=== PATIENT | male | born 1960 | race Caucasian/White ===

== ENCOUNTER 2021-05-21 10:52 | Inpatient (IN) ==
[2021-05-21] MEDS ORDERED: dexAMETHasone**PF** 10 MG/ML VIAL IV ONE (11:52)
--- NOTE | 2021-05-21 12:46 | Emergency Department Note ---
History of Present Illness General Chief complaint: Shortness of Breath/Dyspnea Stated complaint: SOB,LOW OXYGEN,LEG SHAKES,LOWER BODY Time Seen by Provider: 05/21/21 11:49 History of Present Illness 61-year-old male who presents to the emergency department with complaint of a low oxygen level, weakness and shortness of breath. The patient reports that he tested positive for COVID-19 on 05/10/2021. Patient reports having symptoms the day before he was tested, which included headaches and body aches. The patient reports that his symptoms have been progressively worsening for the past 4 to 5 days. A sister has a pulse ox, and the patient reports that over the past 24 hours, his oxygen levels have been in the mid 80s. The patient reports that he was seen at the [place] emergency department this past Friday with dizziness. He reports that his chest x-ray was clear. No ECG or lab work was performed. The patient was started on prednisone, and reports that he cannot tolerate the symptoms with irritability, agitation and inability to sleep. He stopped the steroids yesterday. Patient does have a significant history of cardiac stent. He follows with a international relations teacher in [place]. The patient currently rates his discomfort a 2 out of 10. Home Medications Medication Instructions Recorded Confirmed Type RAMIPRIL 5 mg PO HS #0 cap 12/05/15 05/21/21 History ascorbic acid (vitamin C) 1,000 mg 1,000 mg PO Q12H 05/21/21 05/21/21 History tablet,extended release (Vitamin C ER) aspirin 81 mg chewable tablet 81 mg PO DAILY 05/21/21 05/21/21 History atorvastatin 20 mg tablet 20 mg PO QAM 05/21/21 05/21/21 History benzonatate 100 mg capsule 100 mg PO Q6H 05/21/21 05/21/21 History carvedilol 3.125 mg tablet 3.125 mg PO BID 05/21/21 05/21/21 History Allergies Allergy/AdvReac Type Severity Reaction Status Date / Time No Known Allergies Allergy Unverified 05/21/21 12:28 Past Med/Surg History Medical History Coronary artery disease s/p stent placement ~2010 at [facility]; follows with Dr Aguayo in [place]; no [place] history. Hyperlipidemia Hypertension Surgical History Hx of heart artery stent Family History Father , in his 70s; had CABG, [place], etc. Coronary heart disease Social History Smoking Status: Never smoker Hx Alcohol Use: Yes Alcohol type: beer Alcohol Intake Frequency: Monthly or Less Preferred Language: Persian marital status: Current Living Situation: Family Current Living Situation Comment: lives with son and current occupational status: employed current occupation: works as fitter machinist at [employer] How many Children do You have: 2 Feels Safe at Home: Yes Review of Systems 10 system review was performed and was negative except for pertinent positives and negatives as indicated in history of present illness Physical Exam Vital Signs Vital Signs - 24 hr 05/21/21 11:22 05/21/21 11:52 05/21/21 11:53 Pulse Rate 76 Pulse Rate [Apical] 70 Pulse Rate [Exercises] Pulse Rhythm [Apical] Regular Respiratory Rate 20 18 Respiratory Rate [Exercises] Respiratory Effort / Characteristics Non-Labored Spontaneous Non-Labored Respiratory Depth Normal Normal Respiratory Pattern Regular Regular Blood Pressure 111/74 Blood Pressure [Right Arm] 124/78 Blood Pressure Mean 86 Blood Pressure Mean [Right Arm] 93 Blood Pressure Position Sitting Blood Pressure Position [Right Arm] Sitting Pulse Oximetry 89 L 96 96 Pulse Oximetry [Exercises] Oxygen Delivery Method Room Air Room Air Room Air Sepsis Recent Fever Within 48 Hours No Sepsis New/Unexplained Change in Mental Status No Sepsis Action Taken by Nursing No Action Required 05/21/21 11:55 05/21/21 11:57 05/21/21 12:00 Pulse Rate 60 Pulse Rate [Apical] Pulse Rate [Exercises] 74 Pulse Rhythm [Apical] Respiratory Rate 20 Respiratory Rate [Exercises] 22 Respiratory Effort / Characteristics Respiratory Depth Respiratory Pattern Blood Pressure Blood Pressure [Right Arm] Blood Pressure Mean Blood Pressure Mean [Right Arm] Blood Pressure Position Blood Pressure Position [Right Arm] Pulse Oximetry 96 95 Pulse Oximetry [Exercises] 94 Oxygen Delivery Method Room Air Room Air Sepsis Recent Fever Within 48 Hours Sepsis New/Unexplained Change in Mental Status Sepsis Action Taken by Nursing 05/21/21 12:30 05/21/21 12:45 05/21/21 13:00 Pulse Rate 68 63 Pulse Rate [Apical] Pulse Rate [Exercises] Pulse Rhythm [Apical] Respiratory Rate 20 20 Respiratory Rate [Exercises] 24 Respiratory Effort / Characteristics Respiratory Depth Respiratory Pattern Blood Pressure 132/82 Blood Pressure [Right Arm] Blood Pressure Mean 98 Blood Pressure Mean [Right Arm] Blood Pressure Position Blood Pressure Position [Right Arm] Pulse Oximetry 94 95 Pulse Oximetry [Exercises] 88 L Oxygen Delivery Method Room Air Sepsis Recent Fever Within 48 Hours Sepsis New/Unexplained Change in Mental Status Sepsis Action Taken by Nursing 05/21/21 13:30 05/21/21 14:00 05/21/21 14:30 Pulse Rate 56 L 64 60 Pulse Rate [Apical] Pulse Rate [Exercises] Pulse Rhythm [Apical] Respiratory Rate 20 20 20 Respiratory Rate [Exercises] Respiratory Effort / Characteristics Respiratory Depth Respiratory Pattern Blood Pressure 126/78 Blood Pressure [Right Arm] Blood Pressure Mean 94 Blood Pressure Mean [Right Arm] Blood Pressure Position Blood Pressure Position [Right Arm] Pulse Oximetry 95 93 94 Pulse Oximetry [Exercises] Oxygen Delivery Method Room Air Sepsis Recent Fever Within 48 Hours Sepsis New/Unexplained Change in Mental Status Sepsis Action Taken by Nursing 05/21/21 15:00 Pulse Rate 68 Pulse Rate [Apical] Pulse Rate [Exercises] Pulse Rhythm [Apical] Respiratory Rate 20 Respiratory Rate [Exercises] Respiratory Effort / Characteristics Respiratory Depth Respiratory Pattern Blood Pressure Blood Pressure [Right Arm] Blood Pressure Mean Blood Pressure Mean [Right Arm] Blood Pressure Position Blood Pressure Position [Right Arm] Pulse Oximetry 93 Pulse Oximetry [Exercises] Oxygen Delivery Method Room Air Sepsis Recent Fever Within 48 Hours Sepsis New/Unexplained Change in Mental Status Sepsis Action Taken by Nursing CONSTITUTIONAL: Healthy and well nourished. Patient does not appear in any acute distress. HEENT: Normocephalic, atraumatic. Pupils equal, round and reactive. No scleral icterus or conjunctival injection. No rhinorrhea. Examination the oropharynx shows minimal posterior pharyngeal erythema without tonsillar hypertrophy or exudates. NECK: Full active range of motion without discomfort. No JVD or carotid bruits. LYMPHATICS: No cervical chain adenopathy. RESPIRATORY: Clear to auscultation bilaterally with no wheezing, crackles, rhonchi or stridor. CARDIOVASCULAR: Regular rate and rhythm with no murmurs, rubs or gallops. GASTROINTESTINAL: Bowel sounds present in all quadrants. Soft and nontender to palpation. MUSCULOSKELETAL: Full range of motion of all joints without discomfort. INTEGUMENTARY: No rash or other significant dermatologic conditions noted. HEMATOLOGIC: No ecchymosis or petechiae. PSYCHIATRIC: Positive affect. NEUROLOGIC: No focal neurologic deficits noted. Course Course Patient history and physical exam were performed. Nurses notes were reviewed. Vital signs were reviewed and were normal. I was advised by the patient's nurse that she performed an ambulatory pulse ox that was 94%. Otherwise, she has noted that his oxygen saturation levels are 96% on room air in the room. Upon my presentation, pulse ox was 94%, and the patient did not appear in any acute respiratory distress. The patient was encouraged of his pulse ox levels here in the emergency department, however given the patient's history of coronary artery disease and recent COVID-19 diagnosis, I did recommend further work-up. The patient was in agreement. IV access was established, and labs were drawn. An ECG was performed and was normal. The patient was placed on a teletypesetter monitor while in the emergency department. A portable chest x-ray shows a multi focal pneumonia. Review of labs shows a leukocytosis with left shift and bandemia. Coag studies and electrolytes are grossly normal other than an elevated glucose of 133. C-reactive protein is elevated. Urinalysis is negative. Findings were discussed with the patient. The nurse advised me that when the patient got up to go to the bathroom and he came back to bed, his oxygen was 88% on room air. It is also noted that the patient's pulse ox on room air in triage was also 89%. Given that the patient reports worsening symptoms, multifocal pneumonia on x-ray, and mild hypoxemia, I did recommend contacting the hospitalist service for further recommendation. The case was then further discussed with Dr. Cummings, [facility] Hospitalist service, who agrees with overnight observation. The patient was in agreement. COVID-19 PCR test was ordered prior to transfer of care to the hospitalist service. COVID-19 PCR test was positive. Administered Medications Discontinued Medications Dexamethasone Sodium Phosphate (DexamethasonePf 10 Mg/Ml Vial) 10 mg IV NOW ONE Stop: 05/21/21 11:53 Last Admin: 05/21/21 13:08 Dose: Not Given Documented by: [id number] Medical Decision Making Medical Records Attestation: I reviewed the patient's medical records. Home Medications Current Medication List: was personally reviewed by me Laboratory Data Attestation: I reviewed the patient's lab results. Result diagrams: 05/21/21 12:40 05/21/21 12:40 Lab Results 05/21/21 05/21/21 05/21/21 Range/Units 12:40 12:40 12:40 WBC 13.61 H (4.8-10.8) K/uL RBC 4.88 (4.7-6.1) M/uL Hgb 14.1 (14.0-18.0) g/dL Hct 42.1 (42-52) % MCV 86.3 (80-100) fL MCH 28.9 (25-34) pg MCHC 33.5 (32-36) g/dL RDW Std Deviation 41.9 (36.4-46.3) fL RDW Coeff of Desi 13.2 (11.5-14.5) % Plt Count 198 (130-400) K/uL MPV 10.7 H (7.4-10.4) fL Immature Gran % (Auto) 0.4 % Neut % (Auto) 87.6 % Lymph % (Auto) 6.2 % [place] % (Auto) 5.7 % Eos % (Auto) 0.0 % Baso % (Auto) 0.1 % Neut # (Auto) 11.91 H (1.4-6.5) K/uL Lymph # (Auto) 0.85 L (1.2-3.4) K/uL [place] # (Auto) 0.78 H (0.11-0.59) K/uL Eos # (Auto) 0.00 (0-0.5) K/uL Baso # (Auto) 0.02 (0-0.2) K/uL Immature Gran # (Auto) 0.05 H (0.00-0.02) K/uL PT 9.3 (9.0-12.0) Seconds INR 0.9 (0.9-1.1) APTT 24.5 (21.0-31.0) Seconds PTT Ratio 0.9 Sodium 140 (136-145) mmol/L Potassium 3.9 (3.5-5.1) mmol/L Chloride 103 (98-107) mmol/L Carbon Dioxide 29 (21-32) mmol/L Anion Gap 7.0 (3-11) BUN 15 (7-18) mg/dl Creatinine 0.76 (0.6-1.4) mg/dl Est Cr Clr Drug Dosing Not Reportable Est GFR ( Amer) 115.7 ml/min Est GFR (Non-Af Amer) 99.9 ml/min BUN/Creatinine Ratio 20.1 H (10-20) Glucose 133 H (70-99) mg/dl Calcium 8.0 L (8.5-10.1) mg/dl Magnesium 2.6 H (1.8-2.4) mg/dl Total Bilirubin 0.8 (0.2-1) mg/dl AST 49 H (15-37) U/L ALT 53 (12-78) U/L Alkaline Phosphatase 52 (45-117) U/L Total Creatine Kinase (39-308) U/L Troponin I < 0.015 (0-0.045) ng/ml C-Reactive Protein (0-0.29) mg/dl Total Protein 6.8 (6.4-8.2) gm/dl Albumin 2.9 L (3.4-5.0) gm/dl Globulin 3.9 (2.5-4.0) gm/dl Albumin/Globulin Ratio 0.7 L (0.9-2) Urine Color Urine Appearance (Clear) Urine pH (4.5-7.5) Ur Specific [place] (1.000-1.030) Urine Protein (Negative) Urine Glucose (UA) (Negative) Urine Ketones (Negative) Urine Blood (Negative) Urine Nitrite (Negative) Urine Bilirubin (Negative) Urine Urobilinogen (Negative) Ur Leukocyte Esterase (Negative) 05/21/21 05/21/21 Range/Units 12:40 12:40 WBC (4.8-10.8) K/uL RBC (4.7-6.1) M/uL Hgb (14.0-18.0) g/dL Hct (42-52) % MCV (80-100) fL MCH (25-34) pg MCHC (32-36) g/dL RDW Std Deviation (36.4-46.3) fL RDW Coeff of Desi (11.5-14.5) % Plt Count (130-400) K/uL MPV (7.4-10.4) fL Immature Gran % (Auto) % Neut % (Auto) % Lymph % (Auto) % [place] % (Auto) % Eos % (Auto) % Baso % (Auto) % Neut # (Auto) (1.4-6.5) K/uL Lymph # (Auto) (1.2-3.4) K/uL [place] # (Auto) (0.11-0.59) K/uL Eos # (Auto) (0-0.5) K/uL Baso # (Auto) (0-0.2) K/uL Immature Gran # (Auto) (0.00-0.02) K/uL PT (9.0-12.0) Seconds INR (0.9-1.1) APTT (21.0-31.0) Seconds PTT Ratio Sodium (136-145) mmol/L Potassium (3.5-5.1) mmol/L Chloride (98-107) mmol/L Carbon Dioxide (21-32) mmol/L Anion Gap (3-11) BUN (7-18) mg/dl Creatinine (0.6-1.4) mg/dl Est Cr Clr Drug Dosing Est GFR ( Amer) ml/min Est GFR (Non-Af Amer) ml/min BUN/Creatinine Ratio (10-20) Glucose (70-99) mg/dl Calcium (8.5-10.1) mg/dl Magnesium (1.8-2.4) mg/dl Total Bilirubin (0.2-1) mg/dl AST (15-37) U/L ALT (12-78) U/L Alkaline Phosphatase (45-117) U/L Total Creatine Kinase 75 (39-308) U/L Troponin I (0-0.045) ng/ml C-Reactive Protein 0.84 H (0-0.29) mg/dl Total Protein (6.4-8.2) gm/dl Albumin (3.4-5.0) gm/dl Globulin (2.5-4.0) gm/dl Albumin/Globulin Ratio (0.9-2) Urine Color Yellow Urine Appearance Clear (Clear) Urine pH 6.0 (4.5-7.5) Ur Specific [place] 1.017 (1.000-1.030) Urine Protein Negative (Negative) Urine Glucose (UA) Negative (Negative) Urine Ketones Negative (Negative) Urine Blood Negative (Negative) Urine Nitrite Negative (Negative) Urine Bilirubin Negative (Negative) Urine Urobilinogen Negative (Negative) Ur Leukocyte Esterase Negative (Negative) Imaging Data Attestation: I personally reviewed and interpreted this imaging study as follows: My Impression: My interpretation of aportable chest x-ray shows multifocal pneumonia without evidence for pneumothorax or cardiac prominence. Radiologist report was also reviewed. Radiologist's Impression: Chest X-Ray 05/21/21 11:53 XR chest 1V portable HISTORY: 61 years-old Male Dyspnea acute shortness of breath COMPARISON: Chest radiograph 12/05/2015 TECHNIQUE: Portable AP view of the chest FINDINGS: Patchy bilateral airspace opacities are noted within a mid and lower lung zone prominent distribution. There is no pneumothorax, pleural effusion, or overt pulmonary edema. The cardiac silhouette is upper limits of normal in size. Dege nerative changes of the shoulders and spine. IMPRESSION: Bilateral alveolar opacities are suggestive of multifocal pneumonia. ACT 112: Negative or not required by law. The above report was generated using voice recognition software. It may contain grammatical, syntax or spelling errors. Electronically signed by: Dane Regan M.D. 05/21/2021 12:56 PM ECG Data Attestation: I personally reviewed and interpreted this ECG as follows: Indication: + chest pain, + SOB/dyspnea, + weakness and + other (History heart stent) Rate (beats per minute): 61 Rhythm: + normal sinus ECG Intervals/blocks: + Normal QRS, + Normal QT and + Normal IA ECG [place]: + Normal ECG ST segments: + Normal ST segments Comparison ECG Date: from (12/06/2015) Blood Pressure Blood Pressure Findings: Normal blood pressure MDM Narrative Cardiac monitoring: An order was placed for continuous cardiac monitoring. The monitor shows a rate of 61 bpm with a normal sinus rhythm. ekg monitor history was reviewed throughout the evaluation, and no dysrhythmias were noted. She presents to the emergency department with complaint of increasing weakness and hypoxia on a home pulse oximeter. The patient is currently 12 days with COVID-19 symptoms. He tested positive the day after onset of symptoms (11 days ago). Chest x-ray does show evidence for a multifocal pneumonia. The patient did have a few episodes of hypoxemia while in the emergency department. Impression & Plan Multifocal pneumonia, Hypoxemia, COVID-19 virus infection Discharge Plan Visit Data Chief Complaint: Shortness of Breath/Dyspnea Stated Complaint: SOB,LOW OXYGEN,LEG SHAKES,LOWER BODY ED Provider: Andrey Kumar ED Midlevel Provider: Ryan Nowak Discharge Problem: Multifocal pneumonia, Hypoxemia, COVID-19 virus infection Patient Disposition: Admitted As Inpatient Discharge Instructions Interventions: ED Discharge Assessment Last Done: 05/21/21 19:55
[2021-05-21 12:53] LABS: Basophils # (auto) 0.02 K/uL (0-0.2); Basophils % (auto) 0.1 %; Hematocrit (blood only) 42.1 % (42-52); Hemoglobin 14.1 g/dL (14.0-18.0); Immature Granulocytes # (auto) 0.05 K/uL (0.00-0.02); Immature Granulocytes % (auto) 0.4 %; Lymphocytes # (auto) 0.85 K/uL (1.2-3.4); Lymphocytes % (auto) 6.2 %; Mean Corpuscular Hemoglobin 28.9 pg (25-34); Mean Corpuscular Hgb Conc 33.5 g/dL (32-36); Mean Corpuscular Volume 86.3 fL (80-100); Mean Platelet Volume 10.7 fL (7.4-10.4); Monocytes # (auto) 0.78 K/uL (0.11-0.59); Monocytes % (auto) 5.7 %; Neutrophils # (auto) 11.91 K/uL (1.4-6.5); Neutrophils % (auto) 87.6 %; Platelet Count 198 K/uL (130-400); RDW Coefficient of Variation 13.2 % (11.5-14.5); RDW Standard Deviation 41.9 fL (36.4-46.3); Red Blood Count 4.88 M/uL (4.7-6.1); White Blood Count 13.61 K/uL (4.8-10.8)
--- NOTE | 2021-05-21 12:57 | XRay Report ---
XR chest 1V portable HISTORY: 61 years-old Male Dyspnea acute shortness of breath COMPARISON: Chest radiograph 12/05/2015 TECHNIQUE: Portable AP view of the chest FINDINGS: Patchy bilateral airspace opacities are noted within a mid and lower lung zone prominent distribution . There is no pneumothorax, pleural effusion, or overt pulmonary edema. The cardiac silhouette is upp er limits of normal in size. Degenerative changes of the shoulders and spine. IMPRESSION: Bilateral alveolar opacities are suggestive of multifocal pneumonia. ACT 112: Negative or not required by law. The above report was generated using voice recognition software. It may contain grammatical, syntax o r spelling errors. Electronically signed by: Dane Regan M.D. 05/21/2021 12:56 PM
[2021-05-21 13:03] LABS: INR 0.9 (0.9-1.1); Partial Thromboplastin Ratio 0.9; Partial Thromboplastin Time 24.5 Seconds (21.0-31.0); Prothrombin Time 9.3 Seconds (9.0-12.0)
[2021-05-21 13:18] LABS: Alanine Aminotransferase 53 U/L (12-78); Albumin Level 2.9 gm/dl (3.4-5.0); Aspartate Aminotransferase 49 U/L (15-37); BUN Creatinine Ratio 20.1 (10-20); Blood Urea Nitrogen 15 mg/dl (7-18); Carbon Dioxide 29 mmol/L (21-32); Chloride 103 mmol/L (98-107); Est GFR (African American) 115.7 ml/min; Est GFR (Non-African American) 99.9 ml/min; Glucose 133 mg/dl (70-99); Magnesium 2.6 mg/dl (1.8-2.4); Potassium 3.9 mmol/L (3.5-5.1); Sodium 140 mmol/L (136-145)
[2021-05-21 13:23] LABS: Albumin Globulin Ratio 0.7 (0.9-2); Alkaline Phosphatase 52 U/L (45-117); Appearance Urine Clear (Clear); Bilirubin Urine Negative (Negative); Bilirubin,Total 0.8 mg/dl (0.2-1); Blood Urine Negative (Negative); Color Urine Yellow; Globulin 3.9 gm/dl (2.5-4.0); Glucose Urine UA Negative (Negative); Ketones Urine Negative (Negative); Leukocyte Esterase Urine Negative (Negative); Nitrite Urine Negative (Negative); Protein Urine Negative (Negative); Specific Gravity Urine 1.017 (1.000-1.030); Total Protein 6.8 gm/dl (6.4-8.2); Troponin I < 0.015 ng/ml (0-0.045); Urobilinogen Urine Negative (Negative)
--- NOTE | 2021-05-21 14:36 | Electrocardiogram Report ---
Test Reason : Blood Pressure : / mmHG Vent. Rate : 061 BPM Atrial Rate : 061 BPM P-R Int : 156 ms QRS Dur : 082 ms QT Int : 440 ms P-R-T Axes : 021 046 033 degrees QTc Int : 442 ms Normal sinus rhythm Normal ECG When compared with ECG of 06-DEC-2015 06:30, Nonspecific T wave abnormality now evident in Inferior leads Nonspecific T wave abnormality now evident in Lateral leads Confirmed by Zan Bryant ([id number]) on 05/21/2021 2:35:36 PM Referred By: Confirmed By:Zheng Bryant
--- NOTE | 2021-05-21 15:43 | History & Physical Report ---
Date of Service May 21, 2021 Assessment & Plan (1) Pneumonia due to COVID-19 virus: Plan: He has b/l pneumonia radiographically & clinically on exam. Moderate disease, with borderline hypoxia at rest, and reported hypoxia with exertion. Today is day #4 of dexamethasone. Will continue such tomorrow at 6mg IV daily. He is 10+ days into his illness thus will defer on Remdesivir. He is at risk of ongoing progression of his disease given his CAD, HTN, etc. He is quite dyspneic with minimal activity and I recommended good pulmonary toilet and frequent proning. Incentive jhoana, flutter valve, and mucinex ordered. No evidence of complicating bacterial superinfection. CRP minimally elevated, procal negative. Observe overnight for any clinical deterioration. Check a baseline d-dimer in am. (2) Coronary artery disease: Plan: Continue usual meds of aspirin, beta sharan, and LAYNE. No evidence of ACS in the midst of #1 above No ischemic symptoms and troponin is negative. Place on telemetry. (3) Hypertension: Plan: Controlled. Cont BB and LAYNE. (4) Hyperlipidemia: Plan: Continue statin. (5) Elevated AST (SGOT): Plan: Check CPK now given his recent severe myalgias. Repeat ast/alt in am. (6) Hyperglycemia: Plan: Check HbA1C, r/o early pre-DM or DM. (7) DVT prophylaxis: Plan: Lovenox 40mg BID. Plan: observe overnight if no clinical worsening and he feels well tomorrow consider d/c then consider 2-step if borderline hypoxia continues FEN - 1 L NS hydration. Repeat BMP am. History of Present Illness Chief Complaint: worsening shortness of breath Primary Care Provider: NO PCP 61yo male with history of CAD s/p stent in ~2010 at [facility], HTN, and hyperlipidemia who presents with COVID symptoms beginning about 05/08/21 or 05/09/21. Initial symptoms included severe body-wide myalgias, hyperalgesia of his skin ("nothing could touch my skin - it was so uncomfortable"), headaches, loss of appetite, and chills. He denies having had fever. He has lost about 10 pounds of weight since his symptom onset. He has had loss of taste and smell & both symptoms persist to this day. He then developed a cough which was productive at first but is now dry. He tested positive for COVID-19 on 05/10/21. Symptoms worsened last Friday prompting a visit to the ER at [facility]. Was given IV dexamethasone on Friday, then was d/c home on dexamethasone 6mg daily. He took his first dose of oral dexamethasone on Friday and then again yesterday. He felt that the dexamethasone was making him feel worse and thus skipped his dose this am. He attributes his poor sleep and feeling anxious on the dexamethasone. He was checking his pulse ox at home and he was getting readings in the mid 80s consistently with walking. His dyspnea also worsened in the last 2-3 days. The hypoxia and dyspnea prompted the visit to our ER today. Reviewed of ER Records shows he received IV dexamethasone 10mg x 1. Patient reports being unvaccinated against COVID-19. His 28yo son who lives with him also tested + for COVID-19. Allergies Allergy/AdvReac Type Severity Reaction Status Date / Time No Known Allergies Allergy Unverified 05/21/21 12:28 Home Medications Medication Instructions Recorded Confirmed Type RAMIPRIL 5 mg PO HS #0 cap 12/05/15 05/21/21 History ascorbic acid (vitamin C) 1,000 mg 1,000 mg PO Q12H 05/21/21 05/21/21 History tablet,extended release (Vitamin C ER) aspirin 81 mg chewable tablet 81 mg PO DAILY 05/21/21 05/21/21 History atorvastatin 20 mg tablet 20 mg PO QAM 05/21/21 05/21/21 History benzonatate 100 mg capsule 100 mg PO Q6H 05/21/21 05/21/21 History carvedilol 3.125 mg tablet 3.125 mg PO BID 05/21/21 05/21/21 History Past Med/Surg History Medical History Coronary artery [facility] follows with Dr Aguayo in [place]; no DE history. Hyperlipidemia Hypertension Surgical History Hx of heart artery stent Family History Father , in his 70s; had CABG, DE, etc. Coronary heart disease Social History Smoking Status: Never smoker Hx Alcohol Use: Yes Alcohol type: beer Alcohol Intake Frequency: Monthly or Less Preferred Language: Irish marital status: Current Living Situation: Family Current Living Situation Comment: lives with son and current occupational status: employed current occupation: works as outside machinist helper at [employer] How many Children do You have: 2 Feels Safe at Home: Yes Review of Systems Review of Systems: gen - fevers, fatigue, anorexia, 10-pound weight loss since the illness started; no fevers Eyes - no discharge ENMT - no sore throat, nasal congestion, or ear pain; + loss of taste and smell Resp - cough, dyspnea with activity, mild chest tightness when he coughs CV - no substernal chest pain, no orthopnea GI - diarrhea about 2 days ago, now resolved; no nausea or emesis - no dysuria MS - severe myalgias, now resolved; no arthralgias Skin - no rash but had body-wide hyperalgesia Neuro - headaches - ongoing; no focal motor deficits Psych - no depression Endo - denies diabetes Heme - no bruising Physical Exam Physical Exam: Gen - NAD, but gets dyspneic with little activity (moving in bed); nontoxic Eyes - PERRL HENT - TMs clear b/l, MM slightly dry, nose clear Neck - no JVD, no lymphadenopathy Heart - RRR, s1 s2, no murmurs Lungs - bibasilar rales, worse R base; no wheeze; no increased work of breathing Abd - soft, NT, ND, BS+, no HSM Skin - no rash Neuro - strength 5/5 x 4 exts Psych - a/o x 3 Lymph - no cervical lymphadenopathy Results & Data Results & Data ([facility]) Vital Signs (Past 12 Hours) Vital Signs Pulse Pulse Pulse Resp Resp BP BP 05/21/21 14:00 64 20 126/78 05/21/21 13:30 56 L 20 05/21/21 13:00 63 20 132/82 05/21/21 12:45 24 05/21/21 12:30 68 20 05/21/21 12:00 60 20 05/21/21 11:57 74 22 05/21/21 11:55 05/21/21 11:53 05/21/21 11:52 70 18 124/78 05/21/21 11:22 76 20 111/74 Pulse Ox Pulse Ox 05/21/21 14:00 93 05/21/21 13:30 95 05/21/21 13:00 95 05/21/21 12:45 88 L 05/21/21 12:30 94 05/21/21 12:00 95 05/21/21 11:57 94 05/21/21 11:55 96 05/21/21 11:53 96 05/21/21 11:52 96 05/21/21 11:22 89 L Laboratory Results Chest X-Ray 05/21/21 11:53 XR chest 1V portable HISTORY: 61 years-old Male Dyspnea acute shortness of breath COMPARISON: Chest radiograph 12/05/2015 TECHNIQUE: Portable AP view of the chest FINDINGS: Patchy bilateral airspace opacities are noted within a mid and lower lung zone prominent distribution. There is no pneumothorax, pleural effusion, or overt pulmonary edema. The cardiac silhouette is upper limits of normal in size. Degenerative changes of the shoulders and spine. IMPRESSION: Bilateral alveolar opacities are suggestive of multifocal pneumonia. ACT 112: Negative or not required by law. The above report was generated using voice recognition software. It may contain grammatical, syntax or spelling errors. Electronically signed by: Dane Regan M.D. 05/21/2021 12:56 PM Diagnostic Findings Laboratory Results - last 24 hr 05/21/21 05/21/21 05/21/21 12:40 12:40 12:40 WBC 13.61 H RBC 4.88 Hgb 14.1 Hct 42.1 MCV 86.3 MCH 28.9 MCHC 33.5 RDW Std Deviation 41.9 RDW Coeff of Desi 13.2 Plt Count 198 MPV 10.7 H Immature Gran % (Auto) 0.4 Neut % (Auto) 87.6 Lymph % (Auto) 6.2 [place] % (Auto) 5.7 Eos % (Auto) 0.0 Baso % (Auto) 0.1 Neut # (Auto) 11.91 H Lymph # (Auto) 0.85 L [place] # (Auto) 0.78 H Eos # (Auto) 0.00 Baso # (Auto) 0.02 Immature Gran # (Auto) 0.05 H PT 9.3 INR 0.9 APTT 24.5 PTT Ratio 0.9 Sodium 140 Potassium 3.9 Chloride 103 Carbon Dioxide 29 Anion Gap 7.0 BUN 15 Creatinine 0.76 Est Cr Clr Drug Dosing Not Reportable Est GFR ( Amer) 115.7 Est GFR (Non-Af Amer) 99.9 BUN/Creatinine Ratio 20.1 H Glucose 133 H Calcium 8.0 L Magnesium 2.6 H Total Bilirubin 0.8 AST 49 H ALT 53 Alkaline Phosphatase 52 Total Creatine Kinase Troponin I < 0.015 C-Reactive Protein Total Protein 6.8 Albumin 2.9 L Globulin 3.9 Albumin/Globulin Ratio 0.7 L Urine Color Urine Appearance Urine pH Ur Specific [place] Urine Protein Urine Glucose (UA) Urine Ketones Urine Blood Urine Nitrite Urine Bilirubin Urine Urobilinogen Ur Leukocyte Esterase 05/21/21 05/21/21 12:40 12:40 WBC RBC Hgb Hct MCV MCH MCHC RDW Std Deviation RDW Coeff of Desi Plt Count MPV Immature Gran % (Auto) Neut % (Auto) Lymph % (Auto) [place] % (Auto) Eos % (Auto) Baso % (Auto) Neut # (Auto) Lymph # (Auto) [place] # (Auto) Eos # (Auto) Baso # (Auto) Immature Gran # (Auto) PT INR APTT PTT Ratio Sodium Potassium Chloride Carbon Dioxide Anion Gap BUN Creatinine Est Cr Clr Drug Dosing Est GFR ( Amer) Est GFR (Non-Af Amer) BUN/Creatinine Ratio Glucose Calcium Magnesium Total Bilirubin AST ALT Alkaline Phosphatase Total Creatine Kinase Pending Troponin I C-Reactive Protein Pending Total Protein Albumin Globulin Albumin/Globulin Ratio Urine Color Yellow Urine Appearance Clear Urine pH 6.0 Ur Specific [place] 1.017 Urine Protein Negative Urine Glucose (UA) Negative Urine Ketones Negative Urine Blood Negative Urine Nitrite Negative Urine Bilirubin Negative Urine Urobilinogen Negative Ur Leukocyte Esterase Negative EKG - my reading - NSR, NS ST changes III, AVF Code Status & VTE Plan Code Status full code VTE Prophylaxis Plan VTE Prophylaxis will be ordered: Yes PG Care Time/CCT Total # of Minutes Spent Total Time Spent with Patient: Total time spent is greater than 50% in coordination of care (as documented) at patient's floor/unit and/or counseling patient: Coding Level of Care Code INT OBSERVATION CARE 70M LVL 3 Diagnoses Pneumonia due to COVID-19 virus U07.1; J12.82 Coronary artery disease I25.10 Hypertension I10 Hyperlipidemia E78.5 DVT prophylaxis Z29.9 Elevated AST (SGOT) R74.01 Hyperglycemia R73.9
[2021-05-21 15:53] LABS: C Reactive Protein 0.84 mg/dl (0-0.29)
[2021-05-21] MEDS ORDERED: SODIUM CHLORIDE 0.9% 1000ML 1,000 ML IV SCH (20:00)
[2021-05-21] MEDS ORDERED: NITROGLYCERIN SL 0.4 MG/TAB TAB SL PRN (20:00)
[2021-05-21] MEDS ORDERED: ACETAMINOPHEN 325 MG TAB PO PRN (20:00)
[2021-05-21] MEDS ORDERED: ONDANSETRON INJ 2 MG/ML 2 ML VIAL IV PRN (20:00)
[2021-05-21] MEDS: guaiFENesin 600 MG TABCR PO SCH (21:49)
[2021-05-21] MEDS: ENALAPRIL MALEATE 10 MG TAB PO SCH (21:49)
[2021-05-21] MEDS: ASCORBIC ACID 500 MG TAB PO SCH (21:50)
[2021-05-21] MEDS: FAMOTIDINE 20 MG TAB PO SCH (21:53)
[2021-05-21] MEDS: carvediloL 3.125 MG TAB PO SCH (21:53)
[2021-05-21] MEDS: ENOXAPARIN INJ 40 MG/0.4 ML SYR SQ SCH (21:54)
[2021-05-22] MEDS: carvediloL 3.125 MG TAB PO SCH ×2 (08:19→20:19)
[2021-05-22] MEDS: FAMOTIDINE 20 MG TAB PO SCH ×2 (08:19→20:17)
[2021-05-22] MEDS: ENOXAPARIN INJ 40 MG/0.4 ML SYR SQ SCH ×2 (08:19→20:19)
[2021-05-22] MEDS: ASPIRIN 81 MG ECTAB PO SCH (08:19)
[2021-05-22] MEDS: ASCORBIC ACID 500 MG TAB PO SCH ×2 (08:19→20:16)
[2021-05-22] MEDS: ATORVASTATIN 20 MG TAB PO SCH (08:19)
[2021-05-22] MEDS: dexAMETHasone 6 MG in SYRINGE 0 ML IV SCH (08:19)
[2021-05-22] MEDS: guaiFENesin 600 MG TABCR PO SCH ×2 (08:19→20:18)
[2021-05-22 09:44] LABS: D Dimer 1110 ug/L FEU (0-500)
[2021-05-22 10:03] LABS: BUN Creatinine Ratio 16.3 (10-20); Calcium 7.6 mg/dl (8.5-10.1); Creatinine Clr Calc Pharmacy 114.1 ml/min; Est GFR (African American) 118.3 ml/min; Est GFR (Non-African American) 102.1 ml/min
[2021-05-22 10:21] LABS: Estimated Average Glucose 128 mg/dl; Hemoglobin A1C 6.1 % (4.5-5.6)
[2021-05-22] MEDS ORDERED: OPTIRAY 320 125ml IV ONE (10:38)
--- NOTE | 2021-05-22 10:53 | CT Scan Report ---
CT angio chest PE protocol CT DOSE: 363.40 mGy.cm HISTORY: 61 years-old Male with COVID,pleuritic pain,r/o PE. Acute shortness of breath with chest p ain. Covid pneumonia. TECHNIQUE: Multiple CTA images of the chest were obtained after the intravenous administration of 119 ml Optiray. Coronal and sagittal MIPS were obtained from the axial data set and were submitted for review. All measurements were obtained according to NASCET criteria. A dose lowering technique was u tilized adhering to the principles of ALARA. COMPARISON: Chest radiograph 05/21/2021 and 12/05/2015 FINDINGS: CTA: Moderate cardiomegaly. There is no pericardial effusion. Moderate coronary artery calcifications. Ect katelynn of the ascending thoracic aorta measures 3.9 x 3.9 cm. There is patency of the imaged great vess els. The pulmonary arterial tree is opacified to level the proximal subsegmental branches and demonst rates no filling defects to suggest thrombus involves disease. CT CHEST: Unremarkable thyroid. No adenopathy. No pneumothorax or pleural effusion. Multifocal patchy and confl uent subpleural predominant multisegmental multilobar distribution of groundglass densities with inte rmixed consolidation. Mild associated intralobular septal thickening. The central airways are patent. No acute process of the imaged upper abdomen. Partially imaged hypodensity left hepatic lobe near the fossa ligament measuring 1.4 cm and currently characterize, possibly focal fatty infiltration. 2.5 c m left hepatic lobe cyst. 2.4 cm cyst of the superior pole left kidney. Unremarkable soft tissues. Th ere is no acute fracture. Degenerative changes of the spine. IMPRESSION: 1. No pulmonary emboli. 2. Extensive bilateral subpleural predominant opacities compatible with viral pneumonia. 3. Moderate coronary artery calcifications. ACT 112: Negative or not required by law. The above report was generated using voice recognition software. It may contain grammatical, syntax o r spelling errors. Electronically signed by: Dane Regan M.D. 05/22/2021 10:51 AM
[2021-05-22] MEDS ORDERED: POLYETHYLENE (MIRALAX) 17 GM PACK PO PRN (12:21)
[2021-05-22 14:53] LABS: Potassium 3.9 mmol/L (3.5-5.1)
[2021-05-22] MEDS: ENALAPRIL MALEATE 10 MG TAB PO SCH (20:19)
[2021-05-22] MEDS: DOCUSATE SODIUM/SENNA 50/8.6MG TAB PO SCH (20:24)
--- NOTE | 2021-05-22 22:19 | Hospitalist Progress Note ---
Date of Service May 22, 2021 Assessment & Plan (1) Pneumonia due to COVID-19 virus: Plan: He has b/l pneumonia radiographically & clinically on exam. Moderate disease, with borderline hypoxia at rest, and reported hypoxia with exertion. Now improved, weaned down to 1 L nasal cannula at rest, but does drop to pulse ox 83% on 1 L with walking to the bathroom Did have pain in the mid back with deep inspiration and elevated D-dimer at 1100CT angiogram negative for PE on 05/22 Continue dexamethasone x10-day course to include the days he received it prior to admission-last day will be on 05/27 He is 10+ days into his illness thus will defer on Remdesivir. He is at risk of ongoing progression of his disease given his CAD, HTN, etc. -Continue good pulmonary toilet and frequent proning discussed with patient and nursing Incentive jhoana, flutter valve, and mucinex ordered. No evidence of complicating bacterial superinfection. CRP minimally elevated, procal negative. (2) Acute respiratory failure with hypoxia: Plan: As above Continue supplemental O2 to keep pulse ox greater than 92% Wean off as tolerated (3) Coronary artery disease: Plan: With a history of stent placement, follows with Dr. Aguayo of cardiology No evidence of ACS in the midst of Covid pneumonia and hypoxic respiratory failure No ischemic symptoms and troponin is negative. Place on telemetry-no events -Continue carvedilol, aspirin, atorvastatin, enalapril (4) Hypertension: Plan: Controlled. Cont carvedilol and enalapril (5) Hyperlipidemia: Plan: Continue atorvastatin (6) Elevated AST (SGOT): Plan: CK normal, AST only minimally elevated, ALT normal Likely secondary to COVID-19 (7) Hyperglycemia: Plan: Some hyperglycemia secondary to corticosteroid use Hemoglobin A1c is 6.1% which is in prediabetic range Needs dietary and lifestyle changes after discharge (8) Constipation: Plan: With straining to have bowel movement Continue MiraLAX daily as needed Add on senna/docusate 1 tab p.o. twice daily (9) DVT prophylaxis: Plan: Lovenox 40mg BID. Plan: Disposition-to need stay Admission and Anticipated Discharge Date Admission Date: May 21, 2021 Subjective Patient feeling okay. He feels he is really straining to have a bowel movement that is causing him some pain. He is eating and drinking, making urine. Denies shortness of breath except with exertion to the bathroom his pulse ox does drop to the low 80s. He is weaned down to 1 L while at rest of oxygen. He was having some pain in the mid back with deep inspiration earlier in the day and his CT angiogram the chest was obtained which was negative for PE. Telemetry with normal sinus rhythm with rates in the 50s to 70s Review of Systems Review of Systems: All systems reviewed & are unremarkable except as noted in HPI & below Physical Exam Constitutional: WD/WN, vitals as above Eyes: + anicteric sclerae Neck: trachea midline, no thyromegaly Respiratory: normal respiratory effort; no cough Auscultation: + crackles (Bilateral lower lung waldron); no wheezes Cardiovascular: RRR, no murmur, no edema Chest (Breasts): Chest: normal inspection of chest Gastrointestinal (Abdomen): normal bowel sounds, soft, nontender, no hepatosplenomegaly Musculoskeletal: Extremities: extremities normal to inspection; no cyanosis a nd no clubbing Skin: no rashes, warm and dry Neurologic: moves all extremities and awake; no focal motor deficits Psychiatric: A+Ox3, euthymic affect Lymphatic: no lymphedema Results & Data Results & Data ([facility]) Vital Signs (Past 12 Hours) Vital Signs Temp Pulse Pulse Resp BP BP Pulse Ox 05/22/21 21:50 96 05/22/21 21:44 05/22/21 19:00 36.9 C 79 18 130/71 90 05/22/21 15:52 60 05/22/21 15:47 36.7 C 62 18 130/73 91 05/22/21 11:33 36.6 C 65 18 122/70 95 Pulse Ox 05/22/21 21:50 05/22/21 21:44 96 05/22/21 19:00 05/22/21 15:52 05/22/21 15:47 05/22/21 11:33 Laboratory Results 05/21/21 12:40 05/22/21 09:06 PG Care Time/CCT Total # of Minutes Spent Total Time Spent with Patient: Total time spent is greater than 50% in coordination of care (as documented) at patient's floor/unit and/or counseling patient: Coding Level of Care Code 67125 Subseq Hosp Care Lvl 3 Diagnoses Pneumonia due to COVID-19 virus U07.1; J12.82 Coronary artery disease I25.10 Hypertension I10 Hyperlipidemia E78.5 Elevated AST (SGOT) R74.01 Hyperglycemia R73.9 DVT prophylaxis Z29.9 Acute respiratory failure with hypoxia J96.01 Constipation K59.00
[2021-05-23 06:36] LABS: Hematocrit (blood only) 37.1 % (42-52); Hemoglobin 12.6 g/dL (14.0-18.0); Mean Corpuscular Hemoglobin 28.5 pg (25-34); Mean Corpuscular Volume 83.9 fL (80-100); Mean Platelet Volume 9.8 fL (7.4-10.4); Platelet Count 189 K/uL (130-400); RDW Coefficient of Variation 13.2 % (11.5-14.5); Red Blood Count 4.42 M/uL (4.7-6.1)
[2021-05-23 06:55] LABS: Basophils # (auto) 0.03 K/uL (0-0.2); Basophils % (auto) 0.3 %; Immature Granulocytes # (auto) 0.03 K/uL (0.00-0.02); Immature Granulocytes % (auto) 0.3 %; Lymphocytes # (auto) 0.85 K/uL (1.2-3.4); Lymphocytes % (auto) 8.9 %; Monocytes # (auto) 0.55 K/uL (0.11-0.59); Monocytes % (auto) 5.7 %; Neutrophils # (auto) 8.14 K/uL (1.4-6.5); Neutrophils % (auto) 84.8 %
[2021-05-23 07:02] LABS: Albumin Level 2.3 gm/dl (3.4-5.0); BUN Creatinine Ratio 21.7 (10-20); C Reactive Protein 4.61 mg/dl (0-0.29); Calcium 8.3 mg/dl (8.5-10.1); Creatinine Clr Calc Pharmacy 130.4 ml/min; Est GFR (Non-African American) 107.9 ml/min; Magnesium 2.6 mg/dl (1.8-2.4); Potassium 4.2 mmol/L (3.5-5.1)
[2021-05-23 07:05] LABS: Albumin Globulin Ratio 0.6 (0.9-2); Globulin 3.9 gm/dl (2.5-4.0); Total Protein 6.2 gm/dl (6.4-8.2)
[2021-05-23] MEDS: DOCUSATE SODIUM/SENNA 50/8.6MG TAB PO SCH ×2 (08:42→20:29)
[2021-05-23] MEDS: dexAMETHasone 6 MG in SYRINGE 0 ML IV SCH (08:42)
[2021-05-23] MEDS: ASPIRIN 81 MG ECTAB PO SCH (08:42)
[2021-05-23] MEDS: ATORVASTATIN 20 MG TAB PO SCH (08:42)
[2021-05-23] MEDS: guaiFENesin 600 MG TABCR PO SCH ×2 (08:43→20:31)
[2021-05-23] MEDS: FAMOTIDINE 20 MG TAB PO SCH ×2 (08:43→20:30)
[2021-05-23] MEDS: carvediloL 3.125 MG TAB PO SCH ×2 (08:43→20:29)
[2021-05-23] MEDS: ENOXAPARIN INJ 40 MG/0.4 ML SYR SQ SCH ×2 (08:44→20:30)
[2021-05-23] MEDS: ASCORBIC ACID 500 MG TAB PO SCH ×2 (08:44→20:29)
--- NOTE | 2021-05-23 18:42 | Hospitalist Progress Note ---
Date of Service May 23, 2021 Assessment & Plan (1) Pneumonia due to COVID-19 virus: Plan: He has b/l pneumonia radiographically & clinically on exam. With acute respiratory failure with hypoxia-still requiring 1 L nasal cannula at rest, but pulse ox dropping to 80% on room air with minimal exertion Did have pain in the mid back with deep inspiration and elevated D-dimer at 1100CT angiogram negative for PE on 05/22 Continue dexamethasone x10-day course to include the days he received it prior to admission-last day will be on 05/27 He is 10+ days into his illness thus will defer on Remdesivir. No evidence of complicating bacterial superinfection-procal negative. He is at risk of ongoing progression of his disease given his CAD, HTN, etc. CRP did trend upward today to 4.6 -Continue good pulmonary toilet and frequent proning-he is doing well with all of these -Continue incentive jhoana, flutter valve, and mucinex ordered. - follow chest x-ray to resolution in 4 to 6 weeks as an outpatient -Continue supplemental O2 to keep pulse ox greater than 92% (2) Acute respiratory failure with hypoxia: Plan: As above Continue supplemental O2 to keep pulse ox greater than 92% Wean off as tolerated (3) Coronary artery disease: Plan: With a history of stent placement, follows with Dr. Aguayo of cardiology No evidence of ACS in the midst of Covid pneumonia and hypoxic respiratory failure No ischemic symptoms and troponin is negative. Place on telemetry-no events in 48 hours okay to come off telemetry -Continue carvedilol, aspirin, atorvastatin, enalapril (4) Hypertension: Plan: Controlled. Cont carvedilol and enalapril (5) Hyperlipidemia: Plan: Continue atorvastatin (6) Elevated AST (SGOT): Plan: CK normal, AST only minimally elevated and improving ALT normal Likely secondary to COVID-19 (7) Hyperglycemia: Plan: Some hyperglycemia secondary to corticosteroid use Hemoglobin A1c is 6.1% which is in prediabetic range Needs dietary and lifestyle changes after discharge (8) Constipation: Plan: With straining to have bowel movement-now resolved with addition of MiraLAX and senna/docusate (9) DVT prophylaxis: Plan: Lovenox 40mg BID. Plan: Disposition-continued stay, but can downgrade to medical/surgical floor, possib le discharged home in 1 to 2 days, but would like to see oxygen levels not dip as low with exertion prior to discharge Admission and Anticipated Discharge Date Admission Date: May 21, 2021 Subjective Patient reports feeling a little bit better today. Remains on 1 L of oxygen at rest but when he walked to the bathroom without oxygen earlier today, the nurse reports he dropped to 80% on his pulse ox and the patient reports he felt short of breath. He still has some cough. Appetite is good and he is happy that he is finally moving his bowels quite a bit today. He reports he proned for a few hours last night and during the day today and noticed that his pulse ox was 98% with proning. He has been using his incentive spirometer and flutter valve Telemetry with sinus bradycardia and PACs with rates in the 50s Review of Systems Review of Systems: All systems reviewed & are unremarkable except as noted in HPI & below Physical Exam Constitutional: WD/WN, vitals as above Eyes: + anicteric sclerae Neck: trachea midline, no thyromegaly Respiratory: normal respiratory effort; no cough Auscultation: + crackles (Bilateral lower lung waldron); no wheezes Cardiovascular: RRR, no murmur, no edema Chest (Breasts): Chest: normal inspection of chest Gastrointestinal (Abdomen): normal bowel sounds, soft, nontender, no hepatosplenomegaly Musculoskeletal: Extremities: extremities normal to inspection; no cyanosis and no clubbing Skin: no rashes, warm and dry Neurologic: moves all extremities and awake; no focal motor deficits Psychiatric: A+Ox3, euthymic affect Lymphatic: no lymphedema Results & Data Results & Data ([facility]) Vital Signs (Past 12 Hours) Vital Signs Temp Pulse Pulse Resp BP Pulse Ox 05/23/21 15:55 55 L 05/23/21 09:03 37.1 C 56 L 12 169/93 H 91 05/23/21 07:13 51 L Laboratory Results 05/23/21 05/23/21 Range/Units 06:21 06:21 WBC 9.60 (4.8-10.8) K/uL RBC 4.42 L (4.7-6.1) M/uL Hgb 12.6 L (14.0-18.0) g/dL Hct 37.1 L (42-52) % MCV 83.9 (80-100) fL MCH 28.5 (25-34) pg MCHC 34.0 (32-36) g/dL RDW Std Deviation 40.0 (36.4-46.3) fL RDW Coeff of Desi 13.2 (11.5-14.5) % Plt Count 189 (130-400) K/uL MPV 9.8 (7.4-10.4) fL Immature Gran % (Auto) 0.3 % Neut % (Auto) 84.8 % Lymph % (Auto) 8.9 % [place] % (Auto) 5.7 % Eos % (Auto) 0.0 % Baso % (Auto) 0.3 % Neut # (Auto) 8.14 H (1.4-6.5) K/uL Lymph # (Auto) 0.85 L (1.2-3.4) K/uL [place] # (Auto) 0.55 (0.11-0.59) K/uL Eos # (Auto) 0.00 (0-0.5) K/uL Baso # (Auto) 0.03 (0-0.2) K/uL Immature Gran # (Auto) 0.03 H (0.00-0.02) K/uL Sodium 139 (136-145) mmol/L Potassium 4.2 (3.5-5.1) mmol/L Chloride 106 (98-107) mmol/L Carbon Dioxide 29 (21-32) mmol/L Anion Gap 4.0 (3-11) BUN 14 (7-18) mg/dl Creatinine 0.63 (0.6-1.4) mg/dl Est Cr Clr Drug Dosing 130.4 ml/min Est GFR ( Amer) 125.0 ml/min Est GFR (Non-Af Amer) 107.9 ml/min BUN/Creatinine Ratio 21.7 H (10-20) Glucose 127 H (70-99) mg/dl Calcium 8.3 L (8.5-10.1) mg/dl Magnesium 2.6 H (1.8-2.4) mg/dl Total Bilirubin 1.0 (0.2-1) mg/dl AST 40 H (15-37) U/L ALT 54 (12-78) U/L Alkaline Phosphatase 55 (45-117) U/L C-Reactive Protein 4.61 H (0-0.29) mg/dl Total Protein 6.2 L (6.4-8.2) gm/dl Albumin 2.3 L (3.4-5.0) gm/dl Globulin 3.9 (2.5-4.0) gm/dl Albumin/Globulin Ratio 0.6 L (0.9-2) PG Care Time/CCT Total # of Minutes Spent Total Time Spent with Patient: Total time spent is greater than 50% in coordination of care (as documented) at patient's floor/unit and/or counseling patient: Coding Level of Care Code 74686 Subseq Hosp Care Lvl 3 Diagnoses Pneumonia due to COVID-19 virus U07.1; J12.82 Acute respiratory failure with hypoxia J96.01 Coronary artery disease I25.10 Hypertension I10 Hyperlipidemia E78.5 Elevated AST (SGOT) R74.01 Hyperglycemia R73.9 Constipation K59.00 DVT prophylaxis Z29.9
[2021-05-23] MEDS: ENALAPRIL MALEATE 10 MG TAB PO SCH (20:30)
[2021-05-24 07:59] LABS: Hematocrit (blood only) 38.1 % (42-52); Hemoglobin 12.9 g/dL (14.0-18.0); Mean Corpuscular Hemoglobin 28.7 pg (25-34); Mean Corpuscular Hgb Conc 33.9 g/dL (32-36); Mean Corpuscular Volume 84.9 fL (80-100); Mean Platelet Volume 10.1 fL (7.4-10.4); Platelet Count 240 K/uL (130-400); RDW Coefficient of Variation 12.8 % (11.5-14.5); RDW Standard Deviation 39.4 fL (36.4-46.3); Red Blood Count 4.49 M/uL (4.7-6.1); White Blood Count 10.54 K/uL (4.8-10.8)
[2021-05-24 08:27] LABS: Basophils # (auto) 0.06 K/uL (0-0.2); Basophils % (auto) 0.6 %; Eosinophils # (auto) 0.02 K/uL (0-0.5); Eosinophils % (auto) 0.2 %; Immature Granulocytes # (auto) 0.05 K/uL (0.00-0.02); Immature Granulocytes % (auto) 0.5 %; Lymphocytes # (auto) 1.45 K/uL (1.2-3.4); Lymphocytes % (auto) 13.8 %; Monocytes # (auto) 0.62 K/uL (0.11-0.59); Monocytes % (auto) 5.9 %; Neutrophils # (auto) 8.34 K/uL (1.4-6.5)
[2021-05-24] MEDS: carvediloL 3.125 MG TAB PO SCH ×2 (08:36→20:46)
[2021-05-24] MEDS: guaiFENesin 600 MG TABCR PO SCH ×2 (08:36→20:52)
[2021-05-24] MEDS: FAMOTIDINE 20 MG TAB PO SCH ×2 (08:36→20:50)
[2021-05-24] MEDS: DOCUSATE SODIUM/SENNA 50/8.6MG TAB PO SCH ×2 (08:36→20:48)
[2021-05-24] MEDS: ASCORBIC ACID 500 MG TAB PO SCH ×2 (08:38→20:47)
[2021-05-24] MEDS: ATORVASTATIN 20 MG TAB PO SCH (08:39)
[2021-05-24] MEDS: ASPIRIN 81 MG ECTAB PO SCH (08:39)
[2021-05-24] MEDS: dexAMETHasone 6 MG in SYRINGE 0 ML IV SCH (08:47)
[2021-05-24] MEDS: ENOXAPARIN INJ 40 MG/0.4 ML SYR SQ SCH ×2 (08:47→20:50)
[2021-05-24 09:03] LABS: Albumin Level 2.3 gm/dl (3.4-5.0); BUN Creatinine Ratio 24.3 (10-20); C Reactive Protein 2.38 mg/dl (0-0.29); Calcium 8.6 mg/dl (8.5-10.1); Creatinine Clr Calc Pharmacy 141.6 ml/min; Est GFR (African American) 129.3 ml/min; Est GFR (Non-African American) 111.6 ml/min; Potassium 3.9 mmol/L (3.5-5.1)
[2021-05-24 09:05] LABS: Albumin Globulin Ratio 0.6 (0.9-2); Bilirubin,Total 1.3 mg/dl (0.2-1); Total Protein 6.3 gm/dl (6.4-8.2)
[2021-05-24] MEDS: ALBUT/IPRATROP 3MG/0.5MG NEB 3 ML VIAL NEB PRN (11:31)
[2021-05-24] MEDS ORDERED: OXYMETAZOLINE 0.05% 30 ML BTL PRN (11:34)
[2021-05-24] MEDS ORDERED: SODIUM CHLORIDE 0.65% NA SOLN 45 ML (OCEAN) PRN (11:34)
--- NOTE | 2021-05-24 11:35 | Hospitalist Progress Note ---
Date of Service May 24, 2021 Assessment & Plan (1) Pneumonia due to COVID-19 virus: Plan: He has b/l pneumonia radiographically & clinically on exam. With acute respiratory failure with hypoxia-initially requiring 1 L nasal cannula at rest, but pulse ox dropping to 80% on room air with minimal exertion Did have pain in the mid back with deep inspiration and elevated D-dimer at 1100CT angiogram negative for PE on 05/22 Now on 05/24, requiring 4-5LNC at rest and POx desats to 82% with rolling over in bed. Prone positioning brings POx up to 96% Continue dexamethasone x10-day course to include the days he received it prior to admission-last day will be on 05/27 He is 10+ days into his illness thus will defer on Remdesivir. No evidence of complicating bacterial superinfection-procal negative. He is at risk of ongoing progression of his disease given his CAD, HTN, etc. CRP did trend upward to 4.6, but now down to 2.3--> not a candidate for Toci or baricitinib -Continue good pulmonary toilet and frequent proning-he is doing well with all of these -Continue incentive jhoana, flutter valve, and mucinex -add on nasal saline and Afrin prn for nasal congestion -Continue supplemental O2 to keep pulse ox greater than 92%-now on 5LNC but I suspect he may progress in near future to needing HFNC - follow chest x-ray to resolution in 4 to 6 weeks as an outpatient (2) Acute respiratory failure with hypoxia: Plan: As above Continue supplemental O2 to keep pulse ox greater than 92% Wean off as tolerated (3) Coronary artery disease: Plan: With a history of stent placement, follows with Dr. Aguayo of cardiology No evidence of ACS in the midst of Covid pneumonia and hypoxic respiratory failure No ischemic symptoms and troponin is negative.ECG without overt ischemic abnormalities Placed on telemetry-no events in 48 hours and was transferred off telemetry--> if oxygen requirements continue to increase, will place back on tele -Continue carvedilol, aspirin, atorvastatin, enalapril (4) Hypertension: Plan: Controlled. Cont carvedilol and enalapril (5) Hyperlipidemia: Plan: Continue atorvastatin (6) Elevated AST (SGOT): Plan: CK normal, AST only minimally elevated and improving ALT normal Likely secondary to COVID-19 (7) Hyperglycemia: Plan: Some hyperglycemia secondary to corticosteroid use Hemoglobin A1c is 6.1% which is in prediabetic range Needs dietary and lifestyle changes after discharge (8) Constipation: Plan: With straining to have bowel movement-now resolved with addition of MiraLAX and senna/docusate (9) DVT prophylaxis: Plan: Lovenox 40mg BID. Plan: Disposition-continued stay, worsening oxygenation Discussed care with on phone extensively on 05/24 Admission and Anticipated Discharge Date Admission Date: May 23, 2021 Subjective Pt feeling more dyspnea on minimal exertion today, denies CP. Is now requiring 4-5 L at rest and is 96% while proning, but drops to 82% on 5L with rolling over and sitting up. Still some productive cough and having nasal congestion and dryness. He is eating and drinking, no abd pains. Feeling a bit anxious. I called his and updated her extensively on the phone. Review of Systems Review of Systems: All systems reviewed & are unremarkable except as noted in HPI & below Physical Exam Constitutional: WD/WN, vitals as above Eyes: + anicteric sclerae Neck: trachea midline, no thyromegaly Respiratory: normal respiratory effort; no cough Auscultation: + crackles (Bilateral lower lung waldron); no wheezes Cardiovascular: RRR, no murmur, no edema Extremities: no calf tenderness and no pedal edema Chest (Breasts): Chest: normal inspection of chest Gastrointestinal (Abdomen): normal bowel sounds, soft, nontender, no hep atosplenomegaly Musculoskeletal: Extremities: extremities normal to inspection; no cyanosis and no clubbing Skin: no rashes, warm and dry Neurologic: moves all extremities and awake; no focal motor deficits Psychiatric: Orientation: alert and oriented x 3 Affect: + anxious affect Lymphatic: no lymphedema Results & Data Results & Data ([facility]) Vital Signs (Past 12 Hours) Vital Signs Temp Pulse Resp BP Pulse Ox 05/24/21 11:31 62 18 92 05/24/21 08:34 37.0 C 59 L 14 121/74 90 Laboratory Results 05/24/21 05/24/21 Range/Units 07:39 07:39 WBC 10.54 (4.8-10.8) K/uL RBC 4.49 L (4.7-6.1) M/uL Hgb 12.9 L (14.0-18.0) g/dL Hct 38.1 L (42-52) % MCV 84.9 (80-100) fL MCH 28.7 (25-34) pg MCHC 33.9 (32-36) g/dL RDW Std Deviation 39.4 (36.4-46.3) fL RDW Coeff of Desi 12.8 (11.5-14.5) % Plt Count 240 (130-400) K/uL MPV 10.1 (7.4-10.4) fL Immature Gran % (Auto) 0.5 % Neut % (Auto) 79.0 % Lymph % (Auto) 13.8 % [place] % (Auto) 5.9 % Eos % (Auto) 0.2 % Baso % (Auto) 0.6 % Neut # (Auto) 8.34 H (1.4-6.5) K/uL Lymph # (Auto) 1.45 (1.2-3.4) K/uL [place] # (Auto) 0.62 H (0.11-0.59) K/uL Eos # (Auto) 0.02 (0-0.5) K/uL Baso # (Auto) 0.06 (0-0.2) K/uL Immature Gran # (Auto) 0.05 H (0.00-0.02) K/uL Sodium 139 (136-145) mmol/L Potassium 3.9 (3.5-5.1) mmol/L Chloride 106 (98-107) mmol/L Carbon Dioxide 26 (21-32) mmol/L Anion Gap 7.0 (3-11) BUN 14 (7-18) mg/dl Creatinine 0.58 L (0.6-1.4) mg/dl Est Cr Clr Drug Dosing 141.6 ml/min Est GFR ( Amer) 129.3 ml/min Est GFR (Non-Af Amer) 111.6 ml/min BUN/Creatinine Ratio 24.3 H (10-20) Glucose 94 (70-99) mg/dl Calcium 8.6 (8.5-10.1) mg/dl Total Bilirubin 1.3 H (0.2-1) mg/dl AST 34 (15-37) U/L ALT 47 (12-78) U/L Alkaline Phosphatase 49 (45-117) U/L C-Reactive Protein 2.38 H (0-0.29) mg/dl Total Protein 6.3 L (6.4-8.2) gm/dl Albumin 2.3 L (3.4-5.0) gm/dl Globulin 4.0 (2.5-4.0) gm/dl Albumin/Globulin Ratio 0.6 L (0.9-2) PG Care Time/CCT Total # of Minutes Spent Total Time Spent with Patient: Total time spent is greater than 50% in coordination of care (as documented) at patient's floor/unit and/or counseling patient: Coding Level of Care Code 16205 Subseq Hosp Care Lvl 3 Diagnoses Pneumonia due to COVID-19 virus U07.1; J12.82 Acute respiratory failure with hypoxia J96.01 Coronary artery disease I25.10 Hypertension I10 Hyperlipidemia E78.5 Elevated AST (SGOT) R74.01 Hyperglycemia R73.9 Constipation K59.00 DVT prophylaxis Z29.9
--- NOTE | 2021-05-24 14:00 | XRay Report ---
XR chest 1V portable CLINICAL HISTORY: worsening hypoxia TECHNIQUE: Single frontal radiograph of the chest was obtained. Comparison: Comparison is made to chest one view 05/21/2021 FINDINGS: No lines and tubes are seen. Cardiomegaly is noted. Diffuse bilateral airspace opacities are slightly more prominent than the prior exam. No evidence of pleural effusion or pneumothorax. IMPRESSION: Multifocal airspace opacities are slightly increased from prior exam. ACT 112: Negative or not required by law. Electronically signed by: Oz Nguyen M.D. 05/24/2021 1:58 PM
[2021-05-24] MEDS: ENALAPRIL MALEATE 10 MG TAB PO SCH (20:49)
[2021-05-25 06:22] LABS: Hematocrit (blood only) 39.9 % (42-52); Hemoglobin 13.6 g/dL (14.0-18.0); Mean Corpuscular Hemoglobin 28.9 pg (25-34); Mean Corpuscular Hgb Conc 34.1 g/dL (32-36); Mean Corpuscular Volume 84.9 fL (80-100); Platelet Count 281 K/uL (130-400); RDW Coefficient of Variation 12.7 % (11.5-14.5); RDW Standard Deviation 39.2 fL (36.4-46.3); White Blood Count 8.82 K/uL (4.8-10.8)
[2021-05-25 06:59] LABS: Albumin Level 2.4 gm/dl (3.4-5.0); BUN Creatinine Ratio 24.9 (10-20); Calcium 8.4 mg/dl (8.5-10.1); Creatinine Clr Calc Pharmacy 141.6 ml/min; Est GFR (African American) 129.3 ml/min; Est GFR (Non-African American) 111.6 ml/min; Magnesium 2.4 mg/dl (1.8-2.4)
[2021-05-25 07:04] LABS: Albumin Globulin Ratio 0.6 (0.9-2); Bilirubin,Total 1.4 mg/dl (0.2-1); C Reactive Protein 2.2 mg/dl (0-0.29); Globulin 4.2 gm/dl (2.5-4.0); Total Protein 6.6 gm/dl (6.4-8.2)
[2021-05-25 07:51] LABS: Basophils # (auto) 0.04 K/uL (0-0.2); Basophils % (auto) 0.5 %; Eosinophils # (auto) 0.14 K/uL (0-0.5); Eosinophils % (auto) 1.6 %; Immature Granulocytes # (auto) 0.07 K/uL (0.00-0.02); Immature Granulocytes % (auto) 0.8 %; Lymphocytes # (auto) 1.27 K/uL (1.2-3.4); Lymphocytes % (auto) 14.4 %; Monocytes # (auto) 0.59 K/uL (0.11-0.59); Monocytes % (auto) 6.7 %; Neutrophils # (auto) 6.71 K/uL (1.4-6.5)
[2021-05-25] MEDS: dexAMETHasone 6 MG in SYRINGE 0 ML IV SCH (08:49)
[2021-05-25] MEDS: ASPIRIN 81 MG ECTAB PO SCH (08:50)
[2021-05-25] MEDS: ATORVASTATIN 20 MG TAB PO SCH (08:50)
[2021-05-25] MEDS: DOCUSATE SODIUM/SENNA 50/8.6MG TAB PO SCH ×2 (08:50→20:03)
[2021-05-25] MEDS: FAMOTIDINE 20 MG TAB PO SCH ×2 (08:50→20:10)
[2021-05-25] MEDS: guaiFENesin 600 MG TABCR PO SCH ×2 (08:50→20:05)
[2021-05-25] MEDS: ASCORBIC ACID 500 MG TAB PO SCH ×2 (08:51→20:05)
[2021-05-25] MEDS: ENOXAPARIN INJ 40 MG/0.4 ML SYR SQ SCH ×2 (08:52→20:06)
[2021-05-25] MEDS: carvediloL 3.125 MG TAB PO SCH ×2 (08:57→20:03)
--- NOTE | 2021-05-25 14:10 | Hospitalist Progress Note ---
Date of Service May 25, 2021 Assessment & Plan (1) Pneumonia due to COVID-19 virus: Plan: He has b/l pneumonia radiographically & clinically on exam. With acute respiratory failure with hypoxia-initially requiring 1 L nasal cannula at rest, but pulse ox dropping to 80% on room air with minimal exertion Did have pain in the mid back with deep inspiration and elevated D-dimer at 1100-->CT angiogram negative for PE on 05/22 On 05/24, was requiring 4-5LNC at rest and POx desats to 82% with rolling over in bed. Prone positioning brings POx up to 96%. Repeat chest x-ray showed mildly progressed pneumonia bilaterally On 05/25, much improved after doing albuterol nebulizer, continuing I-S and flutter valve, prone positioning. Now requiring 4-5 L but pulse ox is in the mid 90s just sitting in bed and improves even further with proning Continue dexamethasone x10-day course to include the days he received it prior to admission-last day will be on 05/27 He is 10+ days into his illness thus will defer on Remdesivir. No evidence of complicating bacterial superinfection-procal negative. He is at risk of ongoing progression of his disease given his CAD, HTN, etc. CRP did trend upward to 4.6, but now continues to trend downward --> not a candidate for Toci or baricitinib -Continue good pulmonary toilet and frequent proning-he is doing well with all of these -Continue incentive jhoana, flutter valve, and mucinex -Continue on nasal saline and Afrin prn for nasal congestion -Continue supplemental O2 to keep pulse ox greater than 92% - follow chest x-ray to resolution in 4 to 6 weeks as an outpatient (2) Acute respiratory failure with hypoxia: Plan: As above Continue supplemental O2 to keep pulse ox greater than 92% Wean off as tolerated (3) Coronary artery disease: Plan: With a history of stent placement, follows with Dr. Aguayo of cardiology No evidence of ACS in the midst of Covid pneumonia and hypoxic respiratory failure No ischemic symptoms and troponin is negative.ECG without overt ischemic abnormalities proBNP is normal Placed on telemetry-no events in 48 hours and was transferred off telemetry--> if oxygen requirements continue to increase, will place back on tele -Continue carvedilol, aspirin, atorvastatin, enalapril (4) Hypertension: Plan: Controlled. Cont carvedilol and enalapril (5) Hyperlipidemia: Plan: Continue atorvastatin (6) Elevated AST (SGOT): Plan: CK normal, AST only minimally elevated and improving ALT normal Total bilirubin mildly elevated Likely secondary to COVID-19 (7) Hyperglycemia: Plan: Some hyperglycemia secondary to corticosteroid use Hemoglobin A1c is 6.1% which is in prediabetic range Needs dietary and lifestyle changes after discharge (8) Constipation: Plan: With straining to have bowel movement-now resolved with addition of MiraLAX and senna/docusate (9) DVT prophylaxis: Plan: Lovenox 40mg BID. Plan: Disposition-continued stay, on medical Covid unit Discussed care with on phone extensively on 05/24 and again on 05/25 Admission and Anticipated Discharge Date Admission Date: May 23, 2021 Subjective Patient reports feeling much better today. He coughed up a lot of sputum this morning and since then feels he can breathe a lot better. He also reports that the albuterol nebulizer treatment helped him a lot and he plans on asking for it again today. He is eating and drinking, no bowel movement today. He was out of bed and got washed up without significant dyspnea. He denies any chest pain. He was briefly up to 6 L this morning with getting up to walk around but was weaned back down to 5 L and was 95 to 96% on his pulse ox when I saw him. Review of Systems Review of Systems: All systems reviewed & are unremarkable except as noted in HPI & below Physical Exam Constitutional: WD/WN, vitals as above Eyes: + anicteric sclerae Neck: trachea midline, no thyromegaly Respiratory: normal respiratory effort; no cough Auscultation: + crackles (Minimal, much improved airflow today); no wheezes Cardiovascular: RRR, no murmur, no edema Extremities: no calf tenderness and no pedal edema Chest (Breasts): Chest: normal inspection of chest Gastrointestinal (Abdomen): normal bowel sounds, soft, nontender, no hepatosplenomegaly Musculoskeletal: Extremities: extremities normal to inspection; no cyanosis and no clubbing Skin: no rashes, warm and dry Neurologic: moves all extremities and awake; no focal motor deficits Psychiatric: A+Ox3, euthymic affect Lymphatic: no lymphedema Results & Data Results & Data ([facility]) Vital Signs (Past 12 Hours) Vital Signs Temp Pulse Resp BP Pulse Ox 05/25/21 08:57 61 115/71 05/25/21 07:41 36.7 C 59 L 20 122/71 91 05/25/21 03:45 36.6 C 57 L 18 125/72 97 Laboratory Results 05/25/21 05/25/21 Range/Units 06:01 06:01 WBC 8.82 (4.8-10.8) K/uL RBC 4.70 (4.7-6.1) M/uL Hgb 13.6 L (14.0-18.0) g/dL Hct 39.9 L (42-52) % MCV 84.9 (80-100) fL MCH 28.9 (25-34) pg MCHC 34.1 (32-36) g/dL RDW Std Deviation 39.2 (36.4-46.3) fL RDW Coeff of Desi 12.7 (11.5-14.5) % Plt Count 281 (130-400) K/uL MPV 10.0 (7.4-10.4) fL Immature Gran % (Auto) 0.8 % Neut % (Auto) 76.0 % Lymph % (Auto) 14.4 % [place] % (Auto) 6.7 % Eos % (Auto) 1.6 % Baso % (Auto) 0.5 % Neut # (Auto) 6.71 H (1.4-6.5) K/uL Lymph # (Auto) 1.27 (1.2-3.4) K/uL [place] # (Auto) 0.59 (0.11-0.59) K/uL Eos # (Auto) 0.14 (0-0.5) K/uL Baso # (Auto) 0.04 (0-0.2) K/uL Immature Gran # (Auto) 0.07 H (0.00-0.02) K/uL Sodium 137 (136-145) mmol/L Potassium 4.0 (3.5-5.1) mmol/L Chloride 103 (98-107) mmol/L Carbon Dioxide 27 (21-32) mmol/L Anion Gap 7.0 (3-11) BUN 14 (7-18) mg/dl Creatinine 0.58 L (0.6-1.4) mg/dl Est Cr Clr Drug Dosing 141.6 ml/min Est GFR ( Amer) 129.3 ml/min Est GFR (Non-Af Amer) 111.6 ml/min BUN/Creatinine Ratio 24.9 H (10-20) Glucose 89 (70-99) mg/dl Calcium 8.4 L (8.5-10.1) mg/dl Magnesium 2.4 (1.8-2.4) mg/dl Total Bilirubin 1.4 H (0.2-1) mg/dl AST 48 H (15-37) U/L ALT 59 (12-78) U/L Alkaline Phosphatase 54 (45-117) U/L C-Reactive Protein 2.20 H (0-0.29) mg/dl NT-Pro-B Natriuret Pep 144 (0-900) pg/ml Total Protein 6.6 (6.4-8.2) gm/dl Albumin 2.4 L (3.4-5.0) gm/dl Globulin 4.2 H (2.5-4.0) gm/dl Albumin/Globulin Ratio 0.6 L (0.9-2) PG Care Time/CCT Total # of Minutes Spent Total Time Spent with Patient: Total time spent is greater than 50% in coordination of care (as documented) at patient's floor/unit and/or counseling patient: Coding Level of Care Code 72881 Subseq Hosp Care Lvl 3 Diagnoses Pneumonia due to COVID-19 virus U07.1; J12.82 Acute respiratory failure with hypoxia J96.01 Coronary artery disease I25.10 Hypertension I10 Hyperlipidemia E78.5 Elevated AST (SGOT) R74.01 Hyperglycemia R73.9 Constipation K59.00 DVT prophylaxis Z29.9
[2021-05-25] MEDS: ENALAPRIL MALEATE 10 MG TAB PO SCH (20:06)
[2021-05-26 06:00] LABS: Basophils # (auto) 0.01 K/uL (0-0.2); Basophils % (auto) 0.1 %; Eosinophils # (auto) 0.16 K/uL (0-0.5); Eosinophils % (auto) 2.1 %; Hematocrit (blood only) 39.3 % (42-52); Hemoglobin 13.5 g/dL (14.0-18.0); Immature Granulocytes # (auto) 0.07 K/uL (0.00-0.02); Immature Granulocytes % (auto) 0.9 %; Lymphocytes # (auto) 1.07 K/uL (1.2-3.4); Lymphocytes % (auto) 13.9 %; Mean Corpuscular Hgb Conc 34.4 g/dL (32-36); Mean Corpuscular Volume 84.3 fL (80-100); Mean Platelet Volume 10.3 fL (7.4-10.4); Monocytes # (auto) 0.59 K/uL (0.11-0.59); Monocytes % (auto) 7.7 %; Neutrophils # (auto) 5.81 K/uL (1.4-6.5); Neutrophils % (auto) 75.3 %; Platelet Count 297 K/uL (130-400); RDW Coefficient of Variation 12.7 % (11.5-14.5); RDW Standard Deviation 38.5 fL (36.4-46.3); Red Blood Count 4.66 M/uL (4.7-6.1); White Blood Count 7.71 K/uL (4.8-10.8)
[2021-05-26 06:38] LABS: Albumin Level 2.4 gm/dl (3.4-5.0); BUN Creatinine Ratio 30.7 (10-20); Calcium 8.5 mg/dl (8.5-10.1); Creatinine Clr Calc Pharmacy 139.2 ml/min; Est GFR (African American) 128.4 ml/min; Est GFR (Non-African American) 110.8 ml/min; Magnesium 2.4 mg/dl (1.8-2.4); Potassium 4.1 mmol/L (3.5-5.1)
[2021-05-26 06:41] LABS: Albumin Globulin Ratio 0.6 (0.9-2); Bilirubin,Total 1.3 mg/dl (0.2-1); C Reactive Protein 2.38 mg/dl (0-0.29); Globulin 4.3 gm/dl (2.5-4.0); Phosphorus 3.6 mg/dl (2.5-4.9); Total Protein 6.7 gm/dl (6.4-8.2)
[2021-05-26] MEDS: carvediloL 3.125 MG TAB PO SCH ×2 (08:44→21:03)
[2021-05-26] MEDS: guaiFENesin 600 MG TABCR PO SCH ×2 (08:45→21:04)
[2021-05-26] MEDS: ATORVASTATIN 20 MG TAB PO SCH (08:45)
[2021-05-26] MEDS: ASPIRIN 81 MG ECTAB PO SCH (08:45)
[2021-05-26] MEDS: ASCORBIC ACID 500 MG TAB PO SCH ×2 (08:45→21:03)
[2021-05-26] MEDS: ENOXAPARIN INJ 40 MG/0.4 ML SYR SQ SCH ×2 (08:45→21:04)
[2021-05-26] MEDS: dexAMETHasone 6 MG in SYRINGE 0 ML IV SCH (08:46)
[2021-05-26] MEDS: FAMOTIDINE 20 MG TAB PO SCH ×2 (08:52→21:08)
[2021-05-26] MEDS: BENZONATATE 100 MG CAPSULE PO PRN (08:52)
[2021-05-26] MEDS: DOCUSATE SODIUM/SENNA 50/8.6MG TAB PO SCH ×2 (08:52→21:08)
[2021-05-26] MEDS: ALBUT/IPRATROP 3MG/0.5MG NEB 3 ML VIAL NEB PRN (12:08)
--- NOTE | 2021-05-26 12:12 | Hospitalist Progress Note ---
Date of Service May 26, 2021 Assessment & Plan (1) Pneumonia due to COVID-19 virus: Plan: He has b/l pneumonia radiographically & clinically on exam. With acute respiratory failure with hypoxia-initially requiring 1 L nasal cannula at rest, but pulse ox dropping to 80% on room air with minimal exertion Did have pain in the mid back with deep inspiration and elevated D-dimer at 1100-->CT angiogram negative for PE on 05/22 On 05/24, was requiring 4-5LNC at rest and POx desats to 82% with rolling over in bed. Prone positioning brings POx up to 96%. Repeat chest x-ray showed mildly progressed pneumonia bilaterally On 05/25, improved after doing albuterol nebulizer, continuing IS and flutter valve, prone positioning. Still requiring 4-5 L at rest, but pulse ox drops to low 80s with some coughing and minimal exertion, improves with proning Nasal congestion making it hard to breathe through nose Continue dexamethasone x10-day course to include the days he received it prior to admission-last day will be on 05/27 He is 10+ days into his illness at times of admission thus deferred on Remdesivir. No evidence of complicating bacterial superinfection-procal negative. He is at risk of ongoing progression of his disease given his CAD, HTN, etc. CRP did trend upward to 4.6, but now continues to trend downward --> not a candidate for Toci or baricitinib -Continue good pulmonary toilet and frequent proning-he is doing well with all of these -Continue incentive jhoana, flutter valve, and mucinex - nasal saline and Afrin prn for nasal congestion were ordered, but he had not received them in 2 days ----> asked RN to bring saline to bedside and encouraged Afrin use prn -Duonebs prn-asked RT to do one today -Continue supplemental O2 to keep pulse ox greater than 92% - follow chest x-ray to resolution in 4 to 6 weeks as an outpatient (2) Acute respiratory failure with hypoxia: Plan: As above Continue supplemental O2 to keep pulse ox greater than 92% Wean off as tolerated (3) Coronary artery disease: Plan: With a history of stent placement, follows with Dr. Aguayo of cardiology No evidence of ACS in the midst of Covid pneumonia and hypoxic respiratory failure No ischemic symptoms and troponin is negative.ECG without overt ischemic abnormalities no chest pains proBNP is normal Placed on telemetry-no events in 48 hours and was transferred off telemetry--> if oxygen requirements continue to increase, will place back on tele -Continue carvedilol, aspirin, atorvastatin, enalapril (4) Hypertension: Plan: Controlled. Cont carvedilol and enalapril (5) Hyperlipidemia: Plan: Continue atorvastatin (6) Elevated AST (SGOT): Plan: CK normal, AST and ALT, TBili mildly elevated Likely secondary to COVID-19 follow lFTs (7) Hyperglycemia: Plan: Some hyperglycemia secondary to corticosteroid use Hemoglobin A1c is 6.1% which is in prediabetic range Needs dietary and lifestyle changes after discharge no glucose checks needed (8) Constipation: Plan: With straining to have bowel movement-now resolved with addition of MiraLAX and senna/docusate (9) DVT prophylaxis: Plan: Lovenox 40mg BID. Plan: Disposition-continued stay, on medical Covid unit Discussed care with on phone extensively on 05/24 and again on 05/25 Admission and Anticipated Discharge Date Admission Date: May 23, 2021 Subjective Pt having a lot of nasal congestion still, never received the nasal saline or Afrin. Still coughing up some sputum. Denies CP, no abd pain, is moving bowels twice today. No significant CAMPBELL but did drop to low to mid 80s on 4L this AM and had to be temporarily bumped up to 10L NC as per RN. Now back at 4LNC Review of Systems Review of Systems: All systems reviewed & are unremarkable except as noted in HPI & below Physical Exam Constitutional: WD/WN, vitals as above Eyes: + anicteric sclerae Neck: trachea midline, no thyromegaly Respiratory: normal respiratory effort; no cough Auscultation: + crackles (Minimal, much improved airflow today); no wheezes Cardiovascular: RRR, no murmur, no edema Extremities: no calf tenderness and no pedal edema Chest (Breasts): Chest: normal inspection of chest Gastrointestinal (Abdomen): normal bowel sounds, soft, nontender, no hepatosplenomegaly Musculoskeletal: Extremities: extremities normal to inspection; no cyanosis and no clubbing Skin: no rashes, warm and dry Neurologic: moves all extremities and awake; no focal motor deficits Psychiatric: A+Ox3, euthymic affect Lymphatic: no lymphedema Results & Data Results & Data ([facility]) Vital Signs (Past 12 Hours) Vital Signs Temp Pulse Resp BP Pulse Ox 05/26/21 08:57 92 05/26/21 08:43 95 05/26/21 08:28 36.7 C 64 22 104/67 86 L Laboratory Results 05/26/21 05/26/21 Range/Units 05:30 05:30 WBC 7.71 (4.8-10.8) K/uL RBC 4.66 L (4.7-6.1) M/uL Hgb 13.5 L (14.0-18.0) g/dL Hct 39.3 L (42-52) % MCV 84.3 (80-100) fL MCH 29.0 (25-34) pg MCHC 34.4 (32-36) g/dL RDW Std Deviation 38.5 (36.4-46.3) fL RDW Coeff of Desi 12.7 (11.5-14.5) % Plt Count 297 (130-400) K/uL MPV 10.3 (7.4-10.4) fL Immature Gran % (Auto) 0.9 % Neut % (Auto) 75.3 % Lymph % (Auto) 13.9 % [place] % (Auto) 7.7 % Eos % (Auto) 2.1 % Baso % (Auto) 0.1 % Neut # (Auto) 5.81 (1.4-6.5) K/uL Lymph # (Auto) 1.07 L (1.2-3.4) K/uL [place] # (Auto) 0.59 (0.11-0.59) K/uL Eos # (Auto) 0.16 (0-0.5) K/uL Baso # (Auto) 0.01 (0-0.2) K/uL Immature Gran # (Auto) 0.07 H (0.00-0.02) K/uL Sodium 137 (136-145) mmol/L Potassium 4.1 (3.5-5.1) mmol/L Chloride 103 (98-107) mmol/L Carbon Dioxide 29 (21-32) mmol/L Anion Gap 5.0 (3-11) BUN 18 (7-18) mg/dl Creatinine 0.59 L (0.6-1.4) mg/dl Est Cr Clr Drug Dosing 139.2 ml/min Est GFR ( Amer) 128.4 ml/min Est GFR (Non-Af Amer) 110.8 ml/min BUN/Creatinine Ratio 30.7 H (10-20) Glucose 97 (70-99) mg/dl Calcium 8.5 (8.5-10.1) mg/dl Phosphorus 3.6 (2.5-4.9) mg/dl Magnesium 2.4 (1.8-2.4) mg/dl Total Bilirubin 1.3 H (0.2-1) mg/dl AST 58 H (15-37) U/L ALT 88 H (12-78) U/L Alkaline Phosphatase 53 (45-117) U/L C-Reactive Protein 2.38 H (0-0.29) mg/dl Total Protein 6.7 (6.4-8.2) gm/dl Albumin 2.4 L (3.4-5.0) gm/dl Globulin 4.3 H (2.5-4.0) gm/dl Albumin/Globulin Ratio 0.6 L (0.9-2) PG Care Time/CCT Total # of Minutes Spent Total Time Spent with Patient: Total time spent is greater than 50% in coordination of care (as documented) at patient's floor/unit and/or counseling patient: Coding Level of Care Code 40972 Subseq Hosp Care Lvl 2 Diagnoses Pneumonia due to COVID-19 virus U07.1; J12.82 Acute respiratory failure with hypoxia J96.01 Coronary artery disease I25.10 Hypertension I10 Hyperlipidemia E78.5 Elevated AST (SGOT) R74.01 Hyperglycemia R73.9 Constipation K59.00 DVT prophylaxis Z29.9
[2021-05-26] MEDS: ENALAPRIL MALEATE 10 MG TAB PO SCH (21:04)
[2021-05-27 06:40] LABS: Albumin Level 2.3 gm/dl (3.4-5.0); Calcium 8.4 mg/dl (8.5-10.1); Creatinine Clr Calc Pharmacy 136.9 ml/min; Est GFR (African American) 127.6 ml/min; Est GFR (Non-African American) 110.1 ml/min; Magnesium 2.3 mg/dl (1.8-2.4)
[2021-05-27 06:42] LABS: Albumin Globulin Ratio 0.5 (0.9-2); Globulin 4.2 gm/dl (2.5-4.0); Total Protein 6.5 gm/dl (6.4-8.2)
[2021-05-27] MEDS: dexAMETHasone 6 MG in SYRINGE 0 ML IV SCH (07:59)
[2021-05-27] MEDS: ASPIRIN 81 MG ECTAB PO SCH (07:59)
[2021-05-27] MEDS: ATORVASTATIN 20 MG TAB PO SCH (08:00)
[2021-05-27] MEDS: guaiFENesin 600 MG TABCR PO SCH ×2 (08:00→19:49)
[2021-05-27] MEDS: carvediloL 3.125 MG TAB PO SCH ×2 (08:01→19:48)
[2021-05-27] MEDS: ASCORBIC ACID 500 MG TAB PO SCH ×2 (08:01→19:48)
[2021-05-27] MEDS: ENOXAPARIN INJ 40 MG/0.4 ML SYR SQ SCH ×2 (08:02→19:49)
[2021-05-27] MEDS: BENZONATATE 100 MG CAPSULE PO PRN (08:06)
[2021-05-27] MEDS: FAMOTIDINE 20 MG TAB PO SCH ×2 (08:06→19:49)
[2021-05-27] MEDS: DOCUSATE SODIUM/SENNA 50/8.6MG TAB PO SCH ×2 (08:06→19:48)
[2021-05-27] MEDS ORDERED: ALBUT/IPRATROP 3MG/0.5MG NEB 3 ML VIAL NEB SCH ×2 (09:00→16:00)
--- NOTE | 2021-05-27 17:43 | Hospitalist Progress Note ---
Date of Service May 27, 2021 Assessment & Plan (1) Pneumonia due to COVID-19 virus: Plan: Initially tested positive at a routine screen at his work on 05/10/21 and developed symptoms by the next day He has b/l pneumonia radiographically & clinically on exam. With acute respiratory failure with hypoxia-initially requiring 1 L nasal cannula at rest, but pulse ox dropping to 80% on room air with minimal exertion upon admission Initially, did have pain in the mid back with deep inspiration and elevated D- dimer at 1100-->CT angiogram negative for PE on 05/22 On 05/24, was requiring 4-5LNC at rest and POx desats to 82% with rolling over in bed. Prone positioning brings POx up to 96%. Repeat chest x-ray showed mildly progressed pneumonia bilaterally On 05/25, improved after doing albuterol nebulizer, continuing IS and flutter valve, prone positioning. Now much improved on 05/27, weaned down to 2 L with using the oxygen mask as the nasal congestion making it hard to breathe through nose. Improved nasal congestion with nasal saline Continue dexamethasone x10-day course to include the days he received it prior to admission-last day will be on 05/27-now STOP He is 10+ days into his illness at times of admission thus deferred on Remdesivir. No evidence of complicating bacterial superinfection-procal negative. CRP did trend upward to 4.6, but now continues to trend downward --> not a candidate for Toci or baricitinib -Continue good pulmonary toilet and frequent proning-he is doing well with all of these -Continue incentive jhoana, flutter valve, and mucinex - nasal saline and Afrin prn for nasal congestion -Duonebs scheduled once daily in the afternoon as per patient request rather than twice daily -Continue supplemental O2 to keep pulse ox greater than 92%-continues to improve, hopeful for discharge on Friday with a two-step walk test prior to discharge - follow chest x-ray to resolution in 4 to 6 weeks as an outpatient (2) Acute respiratory failure with hypoxia: Plan: As above Continue supplemental O2 to keep pulse ox greater than 92% Wean off as tolerated (3) Coronary artery disease: Plan: With a history of stent placement, follows with Dr. Aguayo of cardiology No evidence of ACS in the midst of Covid pneumonia and hypoxic respiratory failure No ischemic symptoms and troponin is negative.ECG without overt ischemic abnormalities no chest pains proBNP is normal Placed on telemetry-no events in 48 hours and was transferred off telemetry--> if oxygen requirements continue to increase, will place back on tele -Continue carvedilol, aspirin, atorvastatin, enalapril (4) Hypertension: Plan: Controlled. Cont carvedilol and enalapril (5) Hyperlipidemia: Plan: Continue atorvastatin (6) Elevated AST (SGOT): Plan: CK normal, AST and ALT, TBili mildly elevated but fairly stable from previous No abdominal pain Likely secondary to COVID-19 Follow LFTs in the morning (7) Hyperglycemia: Plan: Some hyperglycemia secondary to corticosteroid use Hemoglobin A1c is 6.1% which is in prediabetic range Needs dietary and lifestyle changes after discharge no glucose checks needed (8) Constipation: Plan: With straining to have bowel movement-now resolved with addition of MiraLAX and senna/docusate (9) DVT prophylaxis: Plan: Lovenox 40mg BID.-Recommend Xarelto 10 mg daily for 1 month after discharge Plan: Disposition-continued stay, on medical Covid unit, possible for discharge to home in the next 1 to 2 days, will need a two-step prior to discharge I do believe that he can come off precautions-would check with infection control on Friday-his first test was positive on 05/10 and symptoms developed on 05/11 and he is much improved. Discussed care with on phone extensively on 05/24 and again on 05/25, as well as on 05/27 Admission and Anticipated Discharge Date Admission Date: May 23, 2021 Subjective DOing better today. Weaned down to 2L via Oxymask. Feeling improved. Does desat to 85% with walking across the room. He is eating and drinking well, no abdominal pains. He is asking that he only receive 1 DuoNeb treatment per day in the afternoon, not the morning Review of Systems Review of Systems: All systems reviewed & are unremarkable except as noted in HPI & below Physical Exam Constitutional: WD/WN, vitals as above Eyes: + anicteric sclerae Neck: trachea midline, no thyromegaly Respiratory: normal respiratory effort; no cough Auscultation: + crackles (Minimal, much improved airflow today); no wheezes Cardiovascular: RRR, no murmur, no edema Extremities: no calf tenderness and no pedal edema Chest (Breasts): Chest: normal inspection of chest Gastrointestinal (Abdomen): normal bowel sounds, soft, nontender, no hepatosplenomegaly Musculoskeletal: Extremities: extremities normal to inspection; no cyanosis and no clubbing Skin: no rashes, warm and dry Neurologic: moves all extremities and awake; no focal motor deficits Psychiatric: A+Ox3, euthymic affect Lymphatic: no lymphedema Results & Data Results & Data ([facility]) Vital Signs (Past 12 Hours) Vital Signs Temp Pulse Resp BP Pulse Ox 05/27/21 14:59 36.7 C 83 18 105/71 92 05/27/21 08:57 65 14 93 05/27/21 07:00 36.7 C 52 L 18 109/69 92 Laboratory Results 05/27/21 Range/Units 05:30 Sodium 137 (136-145) mmol/L Potassium 4.0 (3.5-5.1) mmol/L Chloride 104 (98-107) mmol/L Carbon Dioxide 28 (21-32) mmol/L Anion Gap 5.0 (3-11) BUN 20 H (7-18) mg/dl Creatinine 0.60 (0.6-1.4) mg/dl Est Cr Clr Drug Dosing 136.9 ml/min Est GFR ( Amer) 127.6 ml/min Est GFR (Non-Af Amer) 110.1 ml/min BUN/Creatinine Ratio 33.0 H (10-20) Glucose 101 H (70-99) mg/dl Calcium 8.4 L (8.5-10.1) mg/dl Magnesium 2.3 (1.8-2.4) mg/dl Total Bilirubin 1.0 (0.2-1) mg/dl AST 61 H (15-37) U/L ALT 109 H (12-78) U/L Alkaline Phosphatase 52 (45-117) U/L Total Protein 6.5 (6.4-8.2) gm/dl Albumin 2.3 L (3.4-5.0) gm/dl Globulin 4.2 H (2.5-4.0) gm/dl Albumin/Globulin Ratio 0.5 L (0.9-2) PG Care Time/CCT Total # of Minutes Spent Total Time Spent with Patient: Total time spent is greater than 50% in coordination of care (as documented) at patient's floor/unit and/or counseling patient: Coding Level of Care Code 67899 Subseq Hosp Care Lvl 3 Diagnoses Pneumonia due to COVID-19 virus U07.1; J12.82 Acute respiratory failure with hypoxia J96.01 Coronary artery disease I25.10 Hypertension I10 Hyperlipidemia E78.5 Elevated AST (SGOT) R74.01 Hyperglycemia R73.9 Constipation K59.00 DVT prophylaxis Z29.9
[2021-05-27] MEDS: ENALAPRIL MALEATE 10 MG TAB PO SCH (19:48)
[2021-05-28 06:36] LABS: Basophils # (auto) 0.01 K/uL (0-0.2); Basophils % (auto) 0.1 %; Eosinophils # (auto) 0.07 K/uL (0-0.5); Eosinophils % (auto) 0.8 %; Hematocrit (blood only) 38.3 % (42-52); Immature Granulocytes % (auto) 1.1 %; Lymphocytes # (auto) 1.55 K/uL (1.2-3.4); Lymphocytes % (auto) 16.9 %; Mean Corpuscular Hemoglobin 28.4 pg (25-34); Mean Corpuscular Hgb Conc 33.9 g/dL (32-36); Mean Corpuscular Volume 83.6 fL (80-100); Monocytes # (auto) 0.77 K/uL (0.11-0.59); Monocytes % (auto) 8.4 %; Neutrophils # (auto) 6.67 K/uL (1.4-6.5); Neutrophils % (auto) 72.7 %; Platelet Count 324 K/uL (130-400); RDW Coefficient of Variation 12.9 % (11.5-14.5); RDW Standard Deviation 39.3 fL (36.4-46.3); Red Blood Count 4.58 M/uL (4.7-6.1); White Blood Count 9.17 K/uL (4.8-10.8)
[2021-05-28 07:05] LABS: Albumin Level 2.4 gm/dl (3.4-5.0); BUN Creatinine Ratio 26.8 (10-20); Calcium 8.6 mg/dl (8.5-10.1); Creatinine Clr Calc Pharmacy 120.8 ml/min; Est GFR (African American) 121.2 ml/min; Est GFR (Non-African American) 104.5 ml/min; Potassium 4.1 mmol/L (3.5-5.1)
[2021-05-28 07:07] LABS: Albumin Globulin Ratio 0.6 (0.9-2); C Reactive Protein 1.1 mg/dl (0-0.29); Total Protein 6.4 gm/dl (6.4-8.2)
[2021-05-28] MEDS: ATORVASTATIN 20 MG TAB PO SCH (08:22)
[2021-05-28] MEDS: ASCORBIC ACID 500 MG TAB PO SCH (08:22)
[2021-05-28] MEDS: DOCUSATE SODIUM/SENNA 50/8.6MG TAB PO SCH (08:22)
[2021-05-28] MEDS: guaiFENesin 600 MG TABCR PO SCH (08:22)
[2021-05-28] MEDS: BENZONATATE 100 MG CAPSULE PO PRN (08:22)
[2021-05-28] MEDS: FAMOTIDINE 20 MG TAB PO SCH (08:22)
[2021-05-28] MEDS: carvediloL 3.125 MG TAB PO SCH (08:23)
[2021-05-28] MEDS: ASPIRIN 81 MG ECTAB PO SCH (08:23)
[2021-05-28] MEDS: ENOXAPARIN INJ 40 MG/0.4 ML SYR SQ SCH (09:22)
--- NOTE | 2021-05-28 10:24 | Discharge Summary ---
Date of Service May 28, 2021 Admission HPI Per Admitting Provider 61yo male with history of CAD s/p stent in ~2010 at [facility], HTN, and hyperlipidemia who presents with COVID symptoms beginning about 05/08/21 or 05/09/21. Initial symptoms included severe body-wide myalgias, hyperalgesia of his skin ("nothing could touch my skin - it was so uncomfortable"), headaches, loss of appetite, and chills. He denies having had fever. He has lost about 10 pounds of weight since his symptom onset. He has had loss of taste and smell & both symptoms persist to this day. He then developed a cough which was productive at first but is now dry. He tested positive for COVID-19 on 05/10/21. Symptoms worsened last Friday prompting a visit to the ER at [facility]. Was given IV dexamethasone on Friday, then was d/c home on dexamethasone 6mg daily. He took his first dose of oral dexamethasone on Friday and then again yesterday. He felt that the dexamethasone was making him feel worse and thus skipped his dose this am. He attributes his poor sleep and feeling anxious on the dexamethasone. He was checking his pulse ox at home and he was getting readings in the mid 80s consistently with walking. His dyspnea also worsened in the last 2-3 days. The hypoxia and dyspnea prompted the visit to our ER today. Reviewed of ER Records shows he received IV dexamethasone 10mg x 1. Patient reports being unvaccinated against COVID-19. His 28yo son who lives with him also tested + for COVID-19. Principal Diagnosis COVID 19 pneumonia with acute hypoxic respiratory failure Discharge Exam General: well developed, well nourished, no acute distress, comfortable Neck: supple, trachea midline, normal thyroid Lungs: clear to auscultation bilaterally, normal respiratory effort, no accessory muscle use, no distress Heart: regular S1 and S2, no murmur, peripheral pulses normal, capillary refill normal, no edema Abdomen: soft, NT, ND, + BS, no hepatomegaly, normal to percussion Extremities: normal in appearance, no cyanosis, no petechiae, strength is 5/5 bilaterally Neuro: awake, cooperative, moves all extremities, no focal motor deficits, CN II-XII intact, sensation in extremities intact, normal speech Skin: warm, dry, no rash, normal turgor Psych: Awake, alert oriented x 3, euthymic affect Discharge Data Allergies Allergy/AdvReac Type Severity Reaction Status Date / Time No Known Allergies Allergy Unverified 05/21/21 12:28 Consultations 05/21/21 14:41 ED Decision to Admit Stat Ordered Studies 05/22/21 09:51 CT angio chest PE protocol Stat Hospital Course (1) Pneumonia due to COVID-19 virus: Initially tested positive at a routine screen at his work on 05/10/21 and developed symptoms by the next day He has b/l pneumonia radiographically & clinically on exam. With acute respiratory failure with hypoxia-initially requiring 1 L nasal cannula at rest, but pulse ox dropping to 80% on room air with minimal exertion upon admission Initially, did have pain in the mid back with deep inspiration and elevated D- dimer at 1100-->CT angiogram negative for PE on 05/22 On 05/24, was requiring 4-5LNC at rest and POx desats to 82% with rolling over in bed. Prone positioning brings POx up to 96%. Repeat chest x-ray showed mildly progressed pneumonia bilaterally On 05/25, improved after doing albuterol nebulizer, continuing IS and flutter valve, prone positioning. much improved on 05/27 and 05/28, down to room air at rest today, on 2 step he needed 4L on exertion only, will arrange for home oxygen he completed 10 day course of dexamethasone 6mg IV, no need for further treatment he was too far along in illness to consider Remdesivir and not sick enough for baricitinib discharge to home, follow up with PCP he should be off work for 2 more weeks, he works as a printing machinist with [employer] (2) Acute respiratory failure with hypoxia: As above down to room air at rest, 4L on exertion, arrange for home oxygen anticipate him coming off oxygen in the next 1-2 weeks (3) Coronary artery disease: With a history of stent placement, follows with Dr. Aguayo of cardiology No evidence of ACS in the midst of Covid pneumonia and hypoxic respiratory failure No ischemic symptoms and troponin is negative.ECG without overt ischemic abnormalities no chest pains proBNP is normal Placed on telemetry-no events in 48 hours and was transferred off telemetry--> if oxygen requirements continue to increase, will place back on tele -Continue carvedilol, aspirin, atorvastatin, enalapril (4) Hypertension: Controlled. Cont carvedilol and enalapril (5) Hyperlipidemia: Continue atorvastatin (6) Elevated AST (SGOT): CK normal, AST and ALT, TBili mildly elevated but fairly stable from previous No abdominal pain Likely secondary to COVID-19 self limiting (7) Hyperglycemia: Some hyperglycemia secondary to corticosteroid use Hemoglobin A1c is 6.1% which is in prediabetic range Needs dietary and lifestyle changes after discharge no glucose checks needed (8) Constipation: With straining to have bowel movement-now resolved with addition of MiraLAX and senna/docusate (9) DVT prophylaxis: Lovenox 40mg BID stay active after discharge Disposition- d/c to home Total Time Total Time Spent Total Time Spent (In Minutes): 32 Total Time Includes: Examination of the Patient, Discharge Planning and Medication Reconciliation Discharge Plan Discharge Items Patient Disposition: Home - Self-Care Reason For Visit: COVID-19 PNEUMONIA Discharge Diagnosis: COVID 19 pneumonia Acute hypoxic respiratory failure Condition on Discharge: Good Goals: gradually wean off oxygen improve strength Activity: Resume your previous activity Driving/Machine Use: No limitations Weightbearing: Full weightbearing Non-emergency contact: Primary Care Provider Call non-emergency contact if: you have any medication questions Follow-up/Referrals: PCP,NO [Primary Care Provider] - Diet: Regular Addtl Attending Provider Instructions: Medications: no new medications, completed full course of dexamethasone while admitted COVID 19 pneumonia with acute hypoxic respiratory failure responded well to dexamethasone, weaned down to room air at rest, need 4L on exertion anticipate you will need oxygen for 1-2 weeks recommend you stay at home, off work, another 2 weeks to fully recover stay well nourished, well hydrated increase activity as tolerated you are not consider contagious, no need to isolate or quarantine at this point Pending Studies at Discharge: No Stand-Alone Forms: My [facility] [employer], Work/School Release, Smoking Cessation Medications and DC Order Prescriptions: Continued RAMIPRIL 5 MG capsule 5 mg PO HS Qty: 0 RF: 0 atorvastatin 20 mg tablet 20 mg PO QAM RF: 0 Vitamin C 1,000 mg Tablet Extended Release 1,000 mg PO Q12H RF: 0 carvedilol 3.125 mg Tablet 3.125 mg PO BID RF: 0 benzonatate 100 mg capsule 100 mg PO Q6H RF: 0 aspirin 81 mg Tablet,Chewable 81 mg PO DAILY RF: 0 Discharge Orders: Discharge Order (Routine); Ordered 05/28/21 Ordered By: Oz Gabriel/Other Patient Handouts: A1C Admission Data Admit Date/Time: 05/23/21 20:14 Attending Provider: Oz Howe Admit Provider: Olu Cummings Primary Care Provider: PCP,NO Other Providers: Olu Cummings Coding Level of Care Code D/C DAY MANAGEMENT >30 MINS Diagnoses Pneumonia due to COVID-19 virus U07.1; J12.82 Acute respiratory failure with hypoxia J96.01 Coronary artery disease I25.10 Hypertension I10 Hyperlipidemia E78.5 Elevated AST (SGOT) R74.01 Hyperglycemia R73.9 Constipation K59.00 DVT prophylaxis Z29.9
== END 2021-05-28 14:50 | disposition home or self-care (01) | DRG 177 ==
LOC: EDINP 10:52 → ED 10:52 → SUATTDRO 15:17 → EDINP 19:55 → 2N 05-22 00:13 → SUATTDRO 05-23 20:14 → 3W 05-25 04:19